=== PATIENT | female | born 1950 | race Caucasian/White ===

== ENCOUNTER → 2016-11-29 | Outpatient (CLI) | payer MEDICARE ==
--- NOTE | 2016-11-29 12:08 | US ---
EXAMINATION TYPE: US gallbladder DATE OF EXAM: 11/29/2016 COMPARISON: Prior CT abdomen 05/05/2014 CLINICAL HISTORY: R10.11 Right upper quadrant pain. Intermittent RUQ and epigastric pain x 1 month: g ets worse after eating, N/V EXAM MEASUREMENTS: Liver Length: 12.2 cm Gallbladder Wall: 0.1 cm CBD: 0.7 cm Right Kidney: 9.2 x 3.5 x 4.3 cm Pancreas: visualized portions wnl, tail partially obscured by overlying midline bowel gas, duct shey uring 0.2cm Liver: wnl Gallbladder: wnl Evidence for sonographic Riley's sign: yes CBD: slightly dilated at 0.7cm, stable Right Kidney: fullness of renal pelvis, no pathologic calcification or cortical mass. Mild cortical thinning present. There is no ascites. IMPRESSION: Biliary dilation appears to be chronic. There may be a component of medical renal disease . Probable extrarenal pelvis right kidney. Limited exam.
== END | disposition home or self-care (01) ==
LOC: RADUSWWP 08:15
PROVIDERS: ATTEND Family Medicine
DX: K83.8 Other specified diseases of biliary tract (principal)
CPT/HCPCS: 76705

== ENCOUNTER → 2016-12-14 | Outpatient (CLI) | payer MEDICARE ==
--- NOTE | 2016-12-15 07:14 | NM ---
EXAMINATION TYPE: NM hepatobiliary w EF DATE OF EXAM: 12/14/2016 COMPARISON: NONE HISTORY: Right upper quadrant pain. TECHNIQUE: After the intravenous administration of 5.2 mCi Tc 99m Mebrofenin hepatobiliary scintigrap hy is performed. Immediate images post injection. FINDINGS: There is satisfactory initial accumulation of tracer by the liver. The gallbladder is visualized wit hin 16 minutes. The small bowel was not imaged until after the administration of CCK. At one hour 8 ounces of oral ensure plus is given to mimic CCK and gallbladder ejection fraction is calculated at 39 %, in the normal range. Therefore there is no scintigraphic evidence of cystic or common bile joby t obstruction to suggest acute cholecystitis or gallbladder dyskinesia. IMPRESSION: AMBIGUOUS EXAMINATION WITH FAILURE TO VISUALIZE THE SMALL BOWEL UNTIL AFTER THE ADMINISTRATION OF CCK . I COULD NOT EXCLUDE A PARTIAL DISTAL COMMON DUCT OBSTRUCTION. ERCP VERSUS MRCP WOULD BE SUGGESTED.
== END | disposition home or self-care (01) ==
LOC: RADNMMAIN 14:42
PROVIDERS: ATTEND Family Medicine
DX: R10.11 Right upper quadrant pain (principal)
CPT/HCPCS: 78226; A9537

== ENCOUNTER → 2017-01-09 | Outpatient (CLI) | payer MEDICARE ==
--- NOTE | 2017-01-09 15:24 | BD ---
EXAMINATION TYPE: MG DEXA axial skeleton. DATE OF EXAM: 01/09/2017 COMPARISON: 2014 CLINICAL HISTORY: osteoporosis Height: 5'4 Weight: 104 FRAX RISK QUESTIONS: Alcohol (3 or more units per day): no Family History (Parent hip fracture): no Glucocorticoids (More than 3mos): no (Ex: prednisone, prednisolone, methylprednisolone, dexamethasone, and hydrocortisone). History of Fracture in Adulthood: no Secondary Osteoporosis: 1. Type 1 Diabetes: no 2. Hyperthyroidism: no 3. Menopause before 45: yes 4. Malnutrition: no 5. Chronic liver disease: no Rheumatoid Arthritis: yes Current Tobacco Use: no RISK FACTORS HISTORY OF: Family History of Osteoporosis: Active: Diet low in dairy products/other sources of calcium: Postmenopausal woman: MEDICATIONS: Osteoporosis Medications: Which medication: infusion How Lon year Additional Medications: aspirin, vitamin, aderol Additional History: breast cancer 1989 EXAM MEASUREMENTS: Bone mineral densitometry was performed using the [employer] System. Bone mineral density as measured about the Lumbar spine is: ----- L1-L4(G/cm2): 0.934 T Score Values are as follows: ----- L2: -2.4 ----- L3: -2.3 ----- L4: -1.6 ----- L1-L4: -2.0 Bone mineral density has: Increased 3.2% since study of: 06/18/2014 Bone mineral density about the R hip (g/cm2): 0.671 Bone mineral density about the L hip (g/cm2): 0.684 T Score values are as follows: -----R Neck: -2.6 -----L Neck: -2.5 -----R Total: -1.7 -----L Total: -2.2 Bone mineral density has: Increased 1.1% since study of: 06/18/2014 IMPRESSION: Osteoporosis (T Score less than -2.5) as noted by T Score values at the Rt hip There is increased fracture risk and therapy is usually indicated based on age. Re-Screen 1-2 years. Bone density has improved 3.2% within the lumbar spine and improved 1.1% within the bilateral hips fr om the comparison of 2014 NOTE: T-SCORE=SD OF THE YOUNG ADULT MEAN.
== END | disposition home or self-care (01) ==
LOC: RADBDWWP 07:58
PROVIDERS: ATTEND Family Medicine
DX: M81.0 Age-related osteoporosis without current pathological fracture (principal)
CPT/HCPCS: 77080

== ENCOUNTER → 2017-01-29 | Outpatient (CLI) | payer MEDICARE ==
[~2017-01-29] MED LIST: SODIUM CHLORIDE 0.9% 500 ML in EMPTY BAG 1 BAG IV PRN; ZOLEDRONIC ACID 5 MG in SODIUM CHLORIDE 0.9% 100 ML IV ONE
[2017-01-29 10:11] VITALS: BP 112/53; PULSE 71; RESP 16; TEMP 98.2
== END ==
LOC: PROCWHC3 09:30
PROVIDERS: ATTEND Family Medicine
DX: M81.0 Age-related osteoporosis without current pathological fracture (principal)
CPT/HCPCS: 96365; J3489

== ENCOUNTER 2017-09-03 08:54 | Inpatient (IN) | payer MEDICARE ==
[2017-09-03 09:49] LABS: Appearance,Urine Clear (Clear); Bilirubin,Urine Negative (Negative); Blood,Urine Negative (Negative); Color,Urine Yellow; Glucose,Urine (UA) Negative (Negative); Ketones,Urine Negative (Negative); Leukocyte Esterase,Urine Negative (Negative); Nitrite,Urine Negative (Negative); Protein,Urine Trace (Negative); Specific Gravity,Urine 1.015 (1.001-1.035); Urobilinogen,Urine <2.0 mg/dL (<2.0)
[2017-09-03 09:52] LABS: Basophils % (A) 1 %; Eosinophils # (A) 0.1 k/uL (0-0.7); Eosinophils % (A) 2 %; HCT 44.3 % (34.0-46.0); HGB 14.1 gm/dL (11.4-16.0); Lymphocytes # (A) 1.5 k/uL (1.0-4.8); Lymphocytes % (A) 23 %; MCH 28.9 pg (25.0-35.0); MCHC 31.8 g/dL (31.0-37.0); Mean Platelet Volume 8.5; Monocytes # (A) 0.5 k/uL (0-1.0); Monocytes % (A) 7 %; Neutrophils # (A) 4.2 k/uL (1.3-7.7); Neutrophils % (A) 66 %; Platelet Count 308 k/uL (150-450); RBC 4.87 m/uL (3.80-5.40); RDW 13.8 % (11.5-15.5); WBC 6.3 k/uL (3.8-10.6)
[2017-09-03 10:12] LABS: Calcium 9.6 mg/dL (8.4-10.2); Potassium 5.3 mmol/L (3.5-5.1); Total Bilirubin 0.5 mg/dL (0.2-1.3); Total Protein 6.8 g/dL (6.3-8.2)
[2017-09-03 10:23] LABS: Amphetamine Screen,Urine Not Detected (NotDetected); Barbiturate Screen,Urine Not Detected (NotDetected); Benzodiazepines Screen,Urine Not Detected (NotDetected); Cocaine Screen,Urine Not Detected (NotDetected); Methadone Screen, Urine Not Detected (NotDetected); Opiate Screen,Urine Not Detected (NotDetected); Oxycodone Screen, Urine Not Detected (NotDetected); Phencyclidine Screen,Urine Not Detected (NotDetected); Tricyclic Antidepressant,Urine Not Detected (NotDetected); Urn Cannabinoid Scrn Not Detected (NotDetected)
--- NOTE | 2017-09-03 11:18 | ED ---
Psych HPI - General Chief Complaint: Psychiatric Symptoms Stated Complaint: SUICIDAL Time Seen by Provider: 09/03/17 09:06 Source: patient, family, RN notes reviewed Mode of arrival: ambulatory Limitations: no limitations - History of Present Illness Initial Comments: This a 66-year-old female presents emergency Department with chief complaint of psychiatric issues. Patient states she's been having auditory and visual hallucinations. Patient states that she's been hearing voices tell her that things about her nieces and also states that she's been visualized MM dismembered. Patient states she has a history of psychosis. She does not take any current antipsychotic medications. Patient denies any fevers or chills denies any physical complaints denies any chest pain shortness breath or abdominal pain. She states she's been eating and drinking well. - Related Data Home Medications Medication Instructions Recorded Confirmed Aspirin 325 mg PO DAILY 05/12/14 09/03/17 Multivitamins, Thera [Multivitamin 1 tab PO DAILY 01/29/17 09/03/17 (formulary)] Hydroxychloroquine Sulfate 200 mg PO BID 09/03/17 09/03/17 [Plaquenil] NIFEdipine [NIFEdipine ER] 90 mg PO DAILY 09/03/17 09/03/17 Allergies Allergy/AdvReac Type Severity Reaction Status Date / Time No Known Allergies Allergy Verified 09/03/17 09:22 Review of Systems ROS Statement: Those systems with pertinent positive or pertinent negative responses have been documented in the HPI. ROS Other: All systems not noted in ROS Statement are negative. Past Medical History Past Medical History: Cancer, CVA/TIA, Osteoarthritis (OA), Rheumatoid Arthritis (RA), Seizure Disorder, Skin Disorder, Thyroid Disorder Additional Past Medical History / Comment(s): 02-11-15 ADMITTED TO [facility] WITH CELLULITIS RT EXTERNAL CHEEK/SUB MABIBULAR AREA,DENTAL ABCESS, ABCESS OF CHIN. PAST HX: cva 2006- slight slurred speach and had slight left sided weakness pt stated thats better, hiatal hernia, blurry vision has cataracts, hx breast cancer-BILAT- HAD SX AND CHEMO, history of rheumatoid arthritis not currently on treatment. STATES HAS SKIN DISEASE (moriarties). OSTEOPOROSIS, UTI-ECOLI ( 04-21-14) History of Any Multi-Drug Resistant Organisms: None Reported Past Surgical History: Adenoidectomy, Breast Surgery, Tonsillectomy Additional Past Surgical History / Comment(s): PROLAPSED RECTUM SX MAY 2014, AVELINO MASECTOMY, SKIN BX-NEG Past Anesthesia/Blood Transfusion Reactions: No Reported Reaction Additional Past Anesthesia/Blood Transfusion Reaction / Comment(s): CLAUSTERPHOBIA Past Psychological History: Anxiety, Depression Smoking Status: Former smoker Past Alcohol Use History: None Reported Past Drug Use History: None Reported - Past Family History Father Family Medical History: Cancer, Rheumatoid Arthritis (RA) Additional Family Medical History / Comment(s): SKIN CANCER, HEART PROBLEMS (PT NOT SURE WHAT TYPE) Mother Family Medical History: Dementia, Deep Vein Thrombosis (DVT), Osteoarthritis (OA ) General Exam Limitations: no limitations General appearance: alert, in no apparent distress Head exam: Present: atraumatic, normocephalic, normal inspection Eye exam: Present: normal appearance, PERRL, EOMI. Absent: scleral icterus, conjunctival injection, periorbital swelling ENT exam: Present: mucous membranes moist Neck exam: Present: normal inspection, full ROM. Absent: tenderness, meningismus, lymphadenopathy Respiratory exam: Present: normal lung sounds bilaterally. Absent: respiratory distress, wheezes, rales, rhonchi, stridor Cardiovascular Exam: Present: regular rate, normal rhythm, normal heart sounds. Absent: systolic murmur, diastolic murmur, rubs, gallop, clicks GI/Abdominal exam: Present: soft, normal bowel sounds. Absent: distended, tenderness, guarding, rebound, rigid Psychiatric exam: Present: anxious Skin exam: Present: warm, dry, intact, normal color. Absent: rash Course Vital Signs 09/03/17 08:58 Temperature 97.0 F L Pulse Rate 97 Respiratory 18 Rate Blood Pressure 150/60 O2 Sat by Pulse 99 Oximetry Medical Decision Making - Lab Data Result diagrams: 09/03/17 09:27 09/03/17 09:27 Lab Results 09/03/17 09/03/17 09/03/17 Range/Units 09:27 09:27 09:27 WBC 6.3 (3.8-10.6) k/uL RBC 4.87 (3.80-5.40) m/uL Hgb 14.1 (11.4-16.0) gm/dL Hct 44.3 (34.0-46.0) % MCV 91.0 (80.0-100.0) fL MCH 28.9 (25.0-35.0) pg MCHC 31.8 (31.0-37.0) g/dL RDW 13.8 (11.5-15.5) % Plt Count 308 (150-450) k/uL Neutrophils % 66 % Lymphocytes % 23 % Monocytes % 7 % Eosinophils % 2 % Basophils % 1 % Neutrophils # 4.2 (1.3-7.7) k/uL Lymphocytes # 1.5 (1.0-4.8) k/uL Monocytes # 0.5 (0-1.0) k/uL Eosinophils # 0.1 (0-0.7) k/uL Basophils # 0.0 (0-0.2) k/uL Sodium 146 H (137-145) mmol/L Potassium 5.3 H (3.5-5.1) mmol/L Chloride 108 H (98-107) mmol/L Carbon Dioxide 28 (22-30) mmol/L Anion Gap 10 mmol/L BUN 21 H (7-17) mg/dL Creatinine 1.15 H (0.52-1.04) mg/dL Est GFR (CKD-EPI)AfAm 57 (>60 ml/min/1.73 sqM) Est GFR (CKD-EPI)NonAf 49 (>60 ml/min/1.73 sqM) Glucose 87 (74-99) mg/dL Calcium 9.6 (8.4-10.2) mg/dL Total Bilirubin 0.5 (0.2-1.3) mg/dL AST 11 L (14-36) U/L ALT 23 (9-52) U/L Alkaline Phosphatase 56 (38-126) U/L Total Protein 6.8 (6.3-8.2) g/dL Albumin 4.0 (3.5-5.0) g/dL Urine Color Yellow Urine Appearance Clear (Clear) Urine pH 6.0 (5.0-8.0) Ur Specific [place] 1.015 (1.001-1.035) Urine Protein Trace H (Negative) Urine Glucose (UA) Negative (Negative) Urine Ketones Negative (Negative) Urine Blood Negative (Negative) Urine Nitrite Negative (Negative) Urine Bilirubin Negative (Negative) Urine Urobilinogen <2.0 (<2.0) mg/dL Ur Leukocyte Esterase Negative (Negative) Urine Opiates Screen Not Detected (NotDetected) Ur Oxycodone Screen Not Detected (NotDetected) Urine Methadone Screen Not Detected (NotDetected) Ur Propoxyphene Screen Not Detected (NotDetected) Ur Barbiturates Screen Not Detected (NotDetected) U Tricyclic Antidepress Not Detected (NotDetected) Ur Phencyclidine Scrn Not Detected (NotDetected) Ur Amphetamines Screen Not Detected (NotDetected) U Methamphetamines Scrn Not Detected (NotDetected) U Benzodiazepines Scrn Not Detected (NotDetected) Urine Cocaine Screen Not Detected (NotDetected) U Marijuana (THC) Screen Not Detected (NotDetected) Disposition Clinical Impression: Psychosis Disposition: ADMITTED IP TO THIS HOSP Condition: Stable
[2017-09-03] MEDS ORDERED: ACETAMINOPHEN TAB 325 MG TAB PO PRN (14:00)
[2017-09-03] MEDS ORDERED: MAG HYDROX/AL HYDROX/SIMETH 30 ML CUP PO PRN (14:00)
[2017-09-03] MEDS ORDERED: MAGNESIUM HYDROXIDE 2,400 MG/10 ML CUP PO PRN (14:00)
[2017-09-03] MEDS ORDERED: ZIPRASIDONE 20 MG VIAL IM PRN (14:00)
[2017-09-03] MEDS ORDERED: NIFEdipine XL 90 MG TAB.ER.24 PO SCH (14:15)
[2017-09-03] MEDS: MULTIVITAMINS, THERA 1 EACH TAB PO SCH (16:09)
[2017-09-03] MEDS: ASPIRIN 325 MG TAB PO SCH (16:09)
--- NOTE | 2017-09-03 17:11 | P.HPIM ---
History of Present Illness H&P Date: 09/03/17 Chief Complaint: psychosis and hallucination 66 years old female patient of Dr. Merino comes in with complaints of visual hallucinations and auditory hallucinations including visualizing her dog dismembered that started a week ago. Also has medical history significant for rheumatoid arthritis, osteoporosis, Raynaud's disease, history of seizure disorder, hypothyroidism, CVA/TIA, breast cancer status post bilateral mastectomy and chemotherapy, currently in remission. Patient denies any chest pain, shortness of breath, cough, nausea, vomiting, weight loss, loss of appetite, pain in any of the extremities, history of blood clots, change in bowel habits, loss of blood from any site. She does endorses decreased appetite and not drinking enough fluids. But denies any discoloration of the urine. Vitals done in the ER suggestive of blood pressure 150/60 by repeated blood pressure in the unit was 109/57. Patient is afebrile. Labs obtained in the ER suggested a sodium 146, potassium 5.3, chloride 108, creatinine 1.15 BUN 21 and trace proteins noted on the urine analysis. Toxicology was negative Review of Systems Constitutional: Denies chills, Denies fever, Denies lethargy, Denies malaise, endorses poor appetite, Denies weakness, Denies weight loss Eyes: denies decreased vision, denies diplopia, denies discharge, denies pain Ears: deny: decreased hearing Ears, nose, mouth and throat: Denies dental pain, Denies headache, Denies nasal discharge, Denies nose pain endorses dental pain and loss of teeth Cardiovascular: Denies chest pain, Denies decreased exercise tolerance, Denies edema, Denies high blood pressure, Denies irregular heart beat, Denies palpitations, Denies paroxysmal nocturnal dyspnea, Denies rapid heart beat, Denies shortness of breath Respiratory: Denies congestion, Denies cough, Denies cough with sputum, Denies dyspnea, Denies home oxygen, Denies wheezing Gastrointestinal: Denies abdominal pain, Denies change in bowel habits, Denies coffee ground emesis, Denies early satiety, Denies excessive gas, Denies heartburn, Denies hematemesis, Denies hematochezia, Denies loss of appetite, Denies nausea, Denies vomiting Genitourinary: Denies dysuria, Denies flank pain, Denies kidney stones, Denies menorrhagia, Denies urgency, Denies urinary frequency Musculoskeletal: Denies gait dysfunction, Denies limitation of motion, Denies morning stiffness, Denies muscle cramps Integumentary: Denies rash, Denies wounds, Denies brittle nails, Denies change in hair/nails, Denies darkening of skin Neurological: Denies balance difficulties, Denies change in speech, Denies double vision, Denies gait dysfunction, Denies loss of vision, Denies motor disturbance, Denies numbness, Denies paralysis, Denies paresthesias, Denies seizures Psychiatric: Denies anxiety, Denies depression endorses hallucinations Endocrine: Denies excessive sweating, Denies excessive thirst, Denies high blood sugars, Denies palpitations Hematologic/Lymphatic: Denies easy bruising, Denies lymphadenopathy Past Medical History Past Medical History: Cancer, CVA/TIA, Osteoarthritis (OA), Rheumatoid Arthritis (RA), Seizure Disorder, Skin Disorder, Thyroid Disorder Additional Past Medical History / Comment(s): Cancer bilateral breasts with mastectomies/chemotherapy, 2006 CVA with slight dysphasia and mild R sided arm/ leg weakness, morganii syndrome, cellulitis R cheek, dental and chin abscess, last seizure 2009, hiatal hernia, bilateral cataracts, osteoporosis, UTI, hypothyroid. History of Any Multi-Drug Resistant Organisms: None Reported Past Surgical History: Adenoidectomy, Breast Surgery, Tonsillectomy, Tubal Ligation Additional Past Surgical History / Comment(s): Surgery for prolapsed rectum, colonoscopy, bilateral breast mastectomy, benign skin bx. Past Anesthesia/Blood Transfusion Reactions: No Reported Reaction Additional Past Anesthesia/Blood Transfusion Reaction / Comment(s): CLAUSTERPHOBIA Smoking Status: Former smoker - Past Family History Father Family Medical History: Cancer, Rheumatoid Arthritis (RA) Additional Family Medical History / Comment(s): SKIN CANCER, HEART PROBLEMS (PT NOT SURE WHAT TYPE) Mother Family Medical History: Dementia, Deep Vein Thrombosis (DVT), Osteoarthritis (OA ) Medications and Allergies Home Medications Medication Instructions Recorded Confirmed Type Aspirin 325 mg PO DAILY 05/12/14 09/03/17 History Multivitamins, Thera [Multivitamin 1 tab PO DAILY 01/29/17 09/03/17 History (formulary)] Hydroxychloroquine Sulfate 200 mg PO BID 09/03/17 09/03/17 History [Plaquenil] NIFEdipine [NIFEdipine ER] 90 mg PO DAILY 09/03/17 09/03/17 History Allergies Allergy/AdvReac Type Severity Reaction Status Date / Time No Known Allergies Allergy Verified 09/03/17 14:43 Physical Exam Vitals: Vital Signs Temp Pulse Pulse Resp BP BP Pulse Ox 09/03/17 15:07 98 F 71 16 100 09/03/17 14:58 109/57 09/03/17 14:42 97.0 F L 97 18 150/60 99 09/03/17 08:58 97.0 F L 97 18 150/60 99 Intake and Output 09/03/17 09/03/17 09/03/17 06:59 14:59 22:59 Other: Weight 47.4 kg - Constitutional General appearance: cooperative, in acute distress, obese - EENT Eyes: anicteric sclerae, PERRLA, normal appearance dental decay present with loss of multiple deep ENT: hearing grossly normal - Neck Neck: no lymphadenopathy, normal ROM, no other, no rigidity, no stridor, no thyromegaly - Respiratory Respiratory: bilateral: CTA, negative: diminished, dullness, rales, rhonchi - Cardiovascular Rhythm: regular Heart sounds: normal: S1, S2 Abnormal Heart Sounds: no systolic murmur, no diastolic murmur, no rub, no S3 Gallop, no S4 Gallop, no click, no other - Gastrointestinal General gastrointestinal: normal bowel sounds, soft - Integumentary Integumentary: no rash - Neurologic Neurologic: CNII-XII intact - Musculoskeletal Musculoskeletal: gait normal, strength equal bilaterally - Psychiatric Psychiatric: A&O x's 3, appropriate affect and appears stressed and anxious Results CBC & Chem 7: 09/03/17 09:27 09/03/17 09:27 Labs: Abnormal Lab Results - Last 24 Hours (Table) 09/03/17 09/03/17 Range/Units 09:27 09:27 Sodium 146 H (137-145) mmol/L Potassium 5.3 H (3.5-5.1) mmol/L Chloride 108 H (98-107) mmol/L BUN 21 H (7-17) mg/dL Creatinine 1.15 H (0.52-1.04) mg/dL AST 11 L (14-36) U/L Urine Protein Trace H (Negative) Thrombosis Risk Factor Assmnt - Choose All That Apply Other Risk Factors: Yes Each Risk Factor Represents 2 Points: Age 61-74 years, Malignancy Each Risk Factor Represents 3 Points: Family history of DVT/PE Other congenital or acquired thrombophilia - If yes, enter type in comment: No Thrombosis Risk Factor Assessment Total Risk Factor Score: 7 Thrombosis Risk Factor Assessment Level: High Risk Assessment and Plan Plan: #1 acute psychosis - continue management per primary chain including Geodon as needed. #2 acute kidney injury likely secondary to dehydration and inadequate intake of fluids with skin losses of fluid or GI losses. Repeat CMP tomorrow. Encourage oral intake #3 hypernatremia with hyperkalemia unlikely to be related to diabetes insipidium. Urine osmolality ordered to asess ADH function #4 history of breast cancer status post surgery and chemotherapy, in remission #5 history of CVA/TIA continue aspirin #6 Rehnaud disease - hold nifedipine due to soft blood pressures #7 rheumatoid arthritis continue plaquenil 200 mg twice a day Thank you for the consult. I will be happy to assist in patient's mean while patient is here in the hospital
[2017-09-03] MEDS: HYDROXYCHLOROQUINE SULFATE 200 MG TAB PO SCH (20:57)
[2017-09-04] MEDS: ASPIRIN 325 MG TAB PO SCH (08:27)
[2017-09-04] MEDS: HYDROXYCHLOROQUINE SULFATE 200 MG TAB PO SCH ×2 (08:27→20:30)
[2017-09-04 09:55] LABS: Albumin 3.8 g/dL (3.5-5.0); Calcium 9.4 mg/dL (8.4-10.2); Potassium 5.3 mmol/L (3.5-5.1); Total Bilirubin 0.4 mg/dL (0.2-1.3); Total Protein 6.3 g/dL (6.3-8.2)
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
[2017-09-04] MEDS: CITALOPRAM HYDROBROMIDE 10 MG TAB PO SCH (11:32)
[2017-09-04 11:36] VITALS: BMI 17.9
[2017-09-04] MEDS: MULTIVITAMINS, THERA 1 EACH TAB PO SCH (12:44)
[2017-09-04] MEDS ORDERED: SODIUM POLYSTYRENE SULFONATE 15 GM/60 ML BOTTLE PO STA (14:55)
[2017-09-04 18:20] LABS: Glucose,Whole Blood 89 mg/dL (75-99)
[2017-09-04] MEDS ORDERED: QUEtiapine 25 MG TAB PO SCH (21:00)
[2017-09-05] MEDS: CITALOPRAM HYDROBROMIDE 10 MG TAB PO SCH (07:59)
[2017-09-05] MEDS: ASPIRIN 325 MG TAB PO SCH (07:59)
[2017-09-05] MEDS: HYDROXYCHLOROQUINE SULFATE 200 MG TAB PO SCH ×2 (07:59→20:33)
--- NOTE | 2017-09-05 08:48 | P.PN ---
Progress Note - Text Interval history: The patient is found hallway she follows me to an interview room. She reports her mood is depressed she reports feeling uncomfortable here on the mental health unit and is uncomfortable having a roommate. She states she feels at risk and in danger because she has a roommate. She reports making a greater effort to eat and drink. She states it's difficult attending groups because of her hearing impairment. We discussed her current psychotropic medications her questions were answered. She reports sleeping 4-5 hours last evening staff recorded 6 hours. Previously she was sleeping 2-3 hour she stated. She is looking forward to a visit from her this evening. Mental status exam: The patient is a thin female she is dressed in her own clothing hygiene is adequate. Eye contact is intermittent. She is soft -spoken she demonstrates some mild psychomotor slowing. She reports a continued depressed and hopeless mood. When asked about suicidal ideation she states she would rather not be alive. She reports no homicidal ideation intent or plan. She is endorsing continued auditory hallucinations that are distracting. She continues to have feelings of being in danger. Insight and judgment are impaired. She is oriented to person place and date. She maintains a blunted affect. Throughout the session she remains seated in a chair but does frequently move she moves her hand along the table several times. Plan: The patient will continue on the Celexa we will increase the Seroquel to 50 mg at bedtime we will titrate this as needed. We will monitor her for safety and encourage her participation in the milieu. She is asking to have the insure supplement discontinued and she feels that unnecessary. Vitals reviewed. Labs reviewed. There was improvement of her hypernatremia and creatinine.
[2017-09-05] MEDS: MULTIVITAMINS, THERA 1 EACH TAB PO SCH (12:43)
[2017-09-05] MEDS ORDERED: QUEtiapine 50 MG TAB PO SCH (21:00)
[2017-09-06] MEDS: ASPIRIN 325 MG TAB PO SCH (08:29)
[2017-09-06] MEDS: CITALOPRAM HYDROBROMIDE 10 MG TAB PO SCH (08:30)
[2017-09-06] MEDS: HYDROXYCHLOROQUINE SULFATE 200 MG TAB PO SCH ×2 (08:30→20:30)
[2017-09-06] MEDS ORDERED: LOPERAMIDE 2 MG CAP PO PRN (09:15)
--- NOTE | 2017-09-06 09:22 | P.PN ---
Progress Note - Text Interval history: The patient is found in group she follows me to an interview room. She reports that she wants to go home. Initially she tries to minimize symptoms especially symptoms of psychosis but later in the session she states that she will be honest and state that she is still experiencing auditory hallucination as well as some paranoid thought. She describes having a constant whaling knowing his in her head. She also states that she feels "something is going on up here" as she cannot remember things." She states she is doing the best she can do eat. Further lab work is ordered for today. She reports sleeping throughout the night staff recorded 5 hours. Mental status exam: The patient is a thin female she seated calmly she is soft-spoken eye contact is intermittent. She is dressed in her own clothing. She reports a depressed mood with some hopeless thinking. She endorses no acute suicidal or homicidal ideation. She endorses an auditory hallucination that she describes as constant. She endorses some paranoid and persecutory thoughts. She states she feels like an alien here as she cannot relate to other people. Insight and judgment impaired. She is oriented to person place and date. She demonstrates no verbal or physical aggressiveness or any abnormal involuntary movements. She maintains a blunted affect. Plan: We will discontinue the Seroquel as it seems able take much longer for her to demonstrate efficacy for her psychosis. We will initiate respite all 0.5 mg at bedtime continue Celexa 10 mg daily. She is reporting having some diarrhea which may be related to the Celexa. We will not advance the dose at this time. Imodium prescribed as needed. Await results from blood work to be drawn today. She requires continued psychiatric hospitalization due to her acute symptoms of depression and psychosis.
[2017-09-06 11:09] LABS: Albumin 3.9 g/dL (3.5-5.0); Calcium 9.6 mg/dL (8.4-10.2); Potassium 4.7 mmol/L (3.5-5.1); Total Bilirubin 0.4 mg/dL (0.2-1.3); Total Protein 6.7 g/dL (6.3-8.2)
[2017-09-06] MEDS: MULTIVITAMINS, THERA 1 EACH TAB PO SCH (12:56)
[2017-09-06] MEDS ORDERED: risperiDONE 0.5 MG TAB PO SCH (21:00)
[2017-09-07] MEDS: HYDROXYCHLOROQUINE SULFATE 200 MG TAB PO SCH ×2 (08:19→20:46)
[2017-09-07] MEDS: CITALOPRAM HYDROBROMIDE 10 MG TAB PO SCH (08:19)
[2017-09-07] MEDS: ASPIRIN 325 MG TAB PO SCH (08:19)
--- NOTE | 2017-09-07 11:50 | P.PN ---
Progress Note - Text Progress Note Date: 09/07/17 Interval History: Patient is a 66-year-old female is being seen in coverage for Dr. Maddox. Patient reports that she did not sleep well last night and continues to hear a wailing noise. Patient states that the noise causes her to feel depressed. She states that she is having difficulty focusing, she states it is difficult to read the book that she had with her. Patient denied any paranoid ideation. Patient states she is trying to eat and drink fluids and yesterday she ate 75% of her breakfast, 25% of her lunch and 50% of dinner. Patient states this is more than she typically eats at home. Patient reported no side effects from the medication. Mental Status: Appearance/Attitude: Patient is appropriately dressed, makes good eye contact and is cooperative. Behavior: Patient did not display any psychomotor agitation nor retardation Speech/Language: Patient's speech is spontaneous, her speech is slightly slowed within normal volume and she is coherent Thought Process: Patient is goal-directed, no evidence of circumstantial or tangential thought and no loose association or flight of ideas Thought Content: Patient states that she continues to hear a wailing noise, no visual hallucinations and no delusions or paranoid ideation were elicited. Patient reports that she is trying to eat and drink fluids. Patient states that she did not sleep well last evening. Patient states that she is not feeling suspicious or paranoid. Suicidal/Homicidal Ideation: Patient denied any current suicidal or homicidal ideation. Sensorium/Cognition: Patient is alert and oriented to person, place, and time and her recent and remote memory are grossly intact. Mood/Affect: patient's mood remains slightly depressed, her affect is blunted Insight/Judgment: patient's insight and judgment are fair Assessment: patient reports poor sleep last night with the change from Seroquel to Risperdal. She states she is trying to eat and drink more. She reports that she continues to hear a wailing noise and it causes her to have a headache , feel depressed and make it difficult for her to focus. Patient reports that she is not feeling paranoid or suspicious. She reported no current side effects from her medications. Patient is attending groups and activities. Plan: patient will continue on Celexa 10 mg in the morning and will increase Risperdal to 1 mg at bedtime to target her psychotic symptoms. We'll also add melatonin 3 mg at bedtime to target her poor sleep. Patient continues to require hospitalization to further stabilize her mood and decrease her psychotic symptoms.
[2017-09-07] MEDS: MULTIVITAMINS, THERA 1 EACH TAB PO SCH (12:46)
[2017-09-07] MEDS: risperiDONE 1 MG TAB PO SCH (20:46)
[2017-09-07] MEDS: MELATONIN 3 MG TABLET PO SCH (20:46)
[2017-09-08 07:14] VITALS: RESP 16
[2017-09-08] MEDS: ASPIRIN 325 MG TAB PO SCH (08:36)
[2017-09-08] MEDS: HYDROXYCHLOROQUINE SULFATE 200 MG TAB PO SCH ×2 (08:36→20:10)
[2017-09-08] MEDS: CITALOPRAM HYDROBROMIDE 10 MG TAB PO SCH (08:37)
[2017-09-08] MEDS: MULTIVITAMINS, THERA 1 EACH TAB PO SCH (12:56)
[2017-09-08] MEDS: MELATONIN 3 MG TABLET PO SCH (20:10)
[2017-09-08] MEDS: risperiDONE 1 MG TAB PO SCH (20:11)
--- NOTE | 2017-09-08 21:55 | P.PN ---
Progress Note - Text Progress Note Date: 09/08/17 Patient was seen today. She says she cannot hear well. She reports doing better today. She claims her depression is getting better. She claims she has not heard any voices today. She reports good sleep and appetite. She reports attending and participating in all unit activites and groups. She denies symptoms of ligia. Mental status exam She is 66 year old woman. She is dressed in hospital attire. She appears in fair grooming and hygiene. She is pleasant and cooperative. She maintains good eye contact. Her speech is soft and thought process is goal directed. Her mood is reported as better and affect constricted. She denies auditory or visual hallucinations. She denies paranoia and she does not appear delusional. She denies current suicidal or homicidal ideations. She is alert and oriented to time, place and person. She has fair insight and judgment. Assessment Her symptoms are improving Plan patient will continue on Celexa 10 mg in the morning Continue Risperdal 1 mg at bedtime Continue melatonin 3 mg at bedtime Monitor for symptoms
[2017-09-09] MEDS: HYDROXYCHLOROQUINE SULFATE 200 MG TAB PO SCH ×2 (08:21→20:38)
[2017-09-09] MEDS: ASPIRIN 325 MG TAB PO SCH (08:21)
[2017-09-09] MEDS: CITALOPRAM HYDROBROMIDE 10 MG TAB PO SCH (08:22)
[2017-09-09] MEDS: MULTIVITAMINS, THERA 1 EACH TAB PO SCH (13:35)
--- NOTE | 2017-09-09 20:27 | P.PN ---
Progress Note - Text Progress Note Date: 09/09/17 Patient was seen today. She reports doing very well. She states her visited her today. She reports she will have a meeting tomorrow morning and after that she will go home. She is happy about it. She denies current symptoms of depression, psychosis and ligia. She is compliant with her medications and attends all group therapies. Mental status exam She is 66 year old woman. She is dressed casually . She appears in fair grooming and hygiene. She is pleasant and cooperative. She maintains good eye contact. Her speech is soft and thought process is goal directed. Her mood is reported as good and affect constricted. She denies auditory or visual hallucinations. She denies paranoia and she does not appear delusional. She denies current suicidal or homicidal ideations. She is alert and oriented to time, place and person. She has fair insight and judgment. Assessment Her symptoms have improved significantly Plan patient will continue on Celexa 10 mg in the morning Continue Risperdal 1 mg at bedtime Continue melatonin 3 mg at bedtime Monitor for symptoms
[2017-09-09] MEDS: MELATONIN 3 MG TABLET PO SCH (20:38)
[2017-09-09] MEDS: risperiDONE 1 MG TAB PO SCH (20:38)
[2017-09-10 06:47] VITALS: BP 92/51; PULSE 83; TEMP 97.6
[2017-09-10] MEDS: ASPIRIN 325 MG TAB PO SCH (08:25)
[2017-09-10] MEDS: CITALOPRAM HYDROBROMIDE 10 MG TAB PO SCH (08:25)
[2017-09-10] MEDS: HYDROXYCHLOROQUINE SULFATE 200 MG TAB PO SCH (08:25)
--- NOTE | 2017-09-10 09:18 | P.DS ---
Providers Date of admission: 09/03/17 13:57 Expected date of discharge: 09/10/17 Attending physician: Lara Santiago MD Consults: 09/03/17 14:00 Consult Physician Routine Consulting Provider: Raymond Ovalle Consult Reason/Comments: H and P and Medical management Do you want consulting provider notified?: Yes Primary care physician: Raymond Ovalle [facility] Course: Discharge Diagnosis: Recurrent major depression, moderate with psychotic symptoms Reason for Admission: Patient is a 66-year-old female who was admitted for suicidal ideation, she also was reporting auditory and visual hallucinations. She initially had reported that the auditory hallucinations were stating derogatory comments about her granddaughter. She also had delusional ideation that family members were engaging in incestuous relationships. She was feeling hopeless and helpless. She reported that she did not want to live if this would continue. Her appetite has been decreased and she had not been eating or drinking well nor sleeping well. Patient reported a decrease in her energy level as well. Patient had one prior psychiatric admission several years ago and had been followed in the outpatient setting but had not been seen for the last 6 months due to financial reasons. Her medications in the past and been Seroquel, Remeron and Celexa. Hospital Course: Patient was admitted on a voluntary basis, routine observation and group and activity therapy were ordered. Patient also had routine laboratory studies and a medical consultation was requested. Patient's potassium level was found to be high, this was treated and her labs were repeated within normal potassium level. Patient was initially restarted on Celexa 10 mg and Seroquel 25 mg at bedtime. Patient's psychotic symptoms did not respond to the Seroquel and so it was changed to Risperdal 0.5 mg at bedtime. Patient reported a decrease in her delusional ideation, but the voices persisted and the dose of Risperdal was increased to 1 mg at bedtime. Patient was continued on Celexa 10 mg in the morning. Patient reported that her appetite had improved, she was sleeping 5-6 hours a night and the voices had decreased since her admission. She no longer reported hearing people talking nor a wailing noise but stated that it was a humming noise that was not causing her distress. Patient stated that she had been attending groups and activities and stated that she felt well enough to return home. Patient was continued on her aspirin, Plaquenil and multivitamins. Patient's nifedipine extended release was discontinued due to her blood pressures. Allergies No Known Allergies Allergy (Verified 09/03/17 14:43) Laboratory Last Values WBC 6.3 k/uL (3.8-10.6) 09/03/17 09: RBC 4.87 m/uL (3.80-5.40) 09/03/17: Hgb 14.1 gm/dL (11.4-16.0) 09/03/17: Hct 44.3 % (34.0-46.0) 09/03/17: MCV 91.0 fL (80.0-100.0) 09/03/17: MCH 28.9 pg (25.0-35.0) 09/03/17: MCHC 31.8 g/dL (31.0-37.0) 09/03/17: RDW 13.8 % (11.5-15.5) 09/03/17: Plt Count 308 k/uL (150-450) 09/03/17 09: Neutrophils % 66 % 09/03/17 09: Lymphocytes % 23 % 09/03/17: Monocytes % 7 % 09/03/17: Eosinophils % 2 % 09/03/17 09: Basophils % 1 % 09/03/17 09:27 Neutrophils # 4.2 k/uL (1.3-7.7) 09/03/17 09: Lymphocytes # 1.5 k/uL (1.0-4.8) 09/03/17:27 Monocytes # 0.5 k/uL (0-1.0) 09/03/17 09: Eosinophils # 0.1 k/uL (0-0.7) 09/03/17: Basophils # 0.0 k/uL (0-0.2) 09/03/17 09:27 Sodium 143 mmol/L (137-145) 09/06/17 09:50 Potassium 4.7 mmol/L (3.5-5.1) 09/06/17 09:50 Chloride 104 mmol/L (98-107) 09/06/17 09:50 Carbon Dioxide 26 mmol/L (22-30) 09/06/17 09:50 Anion Gap 13 mmol/L 09/06/17 09:50 BUN 24 mg/dL (7-17) H 09/06/17 09:50 Creatinine 1.10 mg/dL (0.52-1.04) H 09/06/17 09:50 Est GFR (CKD-EPI)AfAm 60 (>60 ml/min/1.73 sqM) 09/06/17 09:50 Est GFR (CKD-EPI)NonAf 52 (>60 ml/min/1.73 sqM) 09/06/17 09:50 Glucose 76 mg/dL (74-99) 09/06/17 09:50 POC Glucose (mg/dL) 89 mg/dL (75-99) 09/04/17 18:08 POC Glu Corset Fitter Sveta Starks 09/04/17 18:08 Osmolality 303 mosm/kg (280-301) H 09/03/17 09:47 Calcium 9.6 mg/dL (8.4-10.2) 09/06/17 09:50 Total Bilirubin 0.4 mg/dL (0.2-1.3) 09/06/17 09:50 AST 18 U/L (14-36) 09/06/17 09:50 ALT 28 U/L (9-52) 09/06/17 09:50 Alkaline Phosphatase 51 U/L (38-126) 09/06/17 09:50 Total Protein 6.7 g/dL (6.3-8.2) 09/06/17 09:50 Albumin 3.9 g/dL (3.5-5.0) 09/06/17 09:50 TSH 1.270 mIU/L (0.465-4.680) 09/04/17 09:18 Urine Color Yellow 09/03/17 09:27 Urine Appearance Clear (Clear) 09/03/17 09:27 Urine pH 6.0 (5.0-8.0) 09/03/17 09:27 Ur Specific [place] 1.015 (1.001-1.035) 09/03/17 09:27 Urine Protein Trace (Negative) H 09/03/17 09:27 Urine Glucose (UA) Negative (Negative) 09/03/17 09:27 Urine Ketones Negative (Negative) 09/03/17 09:27 Urine Blood Negative (Negative) 09/03/17 09:27 Urine Nitrite Negative (Negative) 09/03/17: Urine Bilirubin Negative (Negative) 09/03/17 09: Urine Urobilinogen <2.0 mg/dL (<2.0) 09/03/17 09:27 Ur Leukocyte Esterase Negative (Negative) 09/03/17 09: Urine Osmolality 272 mosm/kg (50-1400) 09/04/17 04:15 Urine Opiates Screen Not Detected (NotDetected) 09/03/17 09:27 Ur Oxycodone Screen Not Detected (NotDetected) 09/03/17 09:27 Urine Methadone Screen Not Detected (NotDetected) 09/03/17 09:27 Ur Propoxyphene Screen Not Detected (NotDetected) 09/03/17 09:27 Ur Barbiturates Screen Not Detected (NotDetected) 09/03/17 09:27 U Tricyclic Antidepress Not Detected (NotDetected) 09/03/17 09:27 Ur Phencyclidine Scrn Not Detected (NotDetected) 09/03/17 09:27 Ur Amphetamines Screen Not Detected (NotDetected) 09/03/17 09:27 U Methamphetamines Scrn Not Detected (NotDetected) 09/03/17 09:27 U Benzodiazepines Scrn Not Detected (NotDetected) 09/03/17 09:27 Urine Cocaine Screen Not Detected (NotDetected) 09/03/17 09:27 U Marijuana (THC) Screen Not Detected (NotDetected) 09/03/17 09:27 Discharge Mental Status: Appearance/Attitude: Patient is a thin appropriately dressed female who made good eye contact and was cooperative. Behavior: Patient did not display any psychomotor agitation or retardation. Speech/Language: Patient's speech was spontaneous and of normal volume and rhythm and she was coherent. Thought Process: Patient is goal-directed, there is no evidence of loose association or flight of ideas. Thought Content: Patient denied visual hallucinations and stated that she still hears a humming in her head which is not distressful to her and is not occurring constantly, no delusional or paranoid ideation was elicited. Patient reports that she is sleeping about 6 hours a night, she has been eating about 75 % of her meals and states that she feels ready to return home. Suicidal/Homicidal Ideation: Patient denied any current suicidal or homicidal ideation. Sensorium/Cognition: Patient is alert and oriented to person, place, and time and her recent and remote memory were grossly intact. Mood/Affect: Patient's mood euthymic, her affect is pang. Insight/Judgment: Patient's insight and judgment are fair. Risk Assessment: Patient's risk for harm is low, patient will be compliant with medication Discharge Plan: Patient will return home to live with her , she will continue on Celexa 10 mg in the morning and Risperdal 1 mg at bedtime. Patient will continue on her Plaquenil, aspirin and multivitamins. Patient states that she was unsure of the melatonin had been beneficial or not and she will see how she sleeps when she returns home. Patient was encouraged to be compliant with follow-up treatment with Dr. Catherine and with her medication. Patient Condition at Discharge: Stable Plan - Discharge Summary Discharge Rx Participant: No New Discharge Prescriptions: New Citalopram Hydrobromide [CeleXA] 10 mg PO DAILY #14 tab risperiDONE [RisperDAL] 1 mg PO HS #14 tab Continue Aspirin 325 mg PO DAILY Multivitamins, Thera [Multivitamin (formulary)] 1 tab PO DAILY Hydroxychloroquine Sulfate [Plaquenil] 200 mg PO BID Discontinued NIFEdipine [NIFEdipine ER] 90 mg PO DAILY Discharge Medication List Aspirin 325 mg PO DAILY 05/12/14 [History] Multivitamins, Thera [Multivitamin (formulary)] 1 tab PO DAILY 01/29/17 [History ] Hydroxychloroquine Sulfate [Plaquenil] 200 mg PO BID 09/03/17 [History] Citalopram Hydrobromide [CeleXA] 10 mg PO DAILY #14 tab 09/10/17 [Rx] risperiDONE [RisperDAL] 1 mg PO HS #14 tab 09/10/17 [Rx] Follow up Appointment(s)/Referral(s): [facility] [Outside] - 09/18/17 11:00 am (09/18 @ 11:00 with Hans 09/21 @ 10:20 Dr. Childers ) Raymond Ovalle DO [Primary Care Provider] - 1-2 days Patient Instructions/Handouts: Depression (DC), Brief Psychotic Disorder (DC) Activity/Diet/Wound Care/Special Instructions: Activity and diet as tolerated. Avoid the use of street drugs and alcohol. Remove all firearms from home. Take all medications as prescribed. When you are in need of refills of your medication please contact your medical provider and/ or outpatient psychiatrist to have this done. Please go to scheduled outpatient appointment for aftercare. If symptoms return or become worse you can call the Crisis Line at and/or go to the nearest emergency room for an evaluation. Discharge Disposition: HOME SELF-CARE
== END 2017-09-10 10:34 | disposition home or self-care (01) | DRG 885 ==
LOC: EC 08:54 → 3MHU 13:57
PROVIDERS: ADMIT Psychiatry & Neurology Psychiatry; ATTEND Psychiatry & Neurology Psychiatry
DX: F33.1 Major depressive disorder, recurrent, moderate (principal); N17.9 Acute kidney failure, unspecified; E87.0 Hyperosmolality and hypernatremia; E87.5 Hyperkalemia; I69.351 Hemiplegia and hemiparesis following cerebral infarction affecting right dominant side; R45.851 Suicidal ideations; E03.9 Hypothyroidism, unspecified; E86.0 Dehydration; G40.909 Epilepsy, unspecified, not intractable, without status epilepticus; H91.90 Unspecified hearing loss, unspecified ear; I73.00 Raynaud's syndrome without gangrene; M06.9 Rheumatoid arthritis, unspecified; M81.0 Age-related osteoporosis without current pathological fracture; Z79.82 Long term (current) use of aspirin; Z79.899 Other long term (current) drug therapy; Z80.8 Family history of malignant neoplasm of other organs or systems; Z85.3 Personal history of malignant neoplasm of breast; Z87.891 Personal history of nicotine dependence; Z90.13 Acquired absence of bilateral breasts and nipples; Z92.21 Personal history of antineoplastic chemotherapy; I69.321 Dysphasia following cerebral infarction; F40.240 Claustrophobia; Z91.410 Personal history of adult physical and sexual abuse
CPT/HCPCS: 36415; 80053; 80306; 81003; 82075; 83930; 83935; 84443; 85025; 93005; 99285

== ENCOUNTER 2018-02-20 06:59 | Emergency (ER) | payer MEDICARE ==
[2018-02-20] MEDS ORDERED: SODIUM CHLORIDE 0.9% 1,000 ML IV STA (07:36)
[2018-02-20] MEDS ORDERED: MAG HYDROX/AL HYDROX/SIMETH 30 ML, HYOSCYAMINE ELIXIR 10 ML, CIMETIDINE HCL 300 MG, LID... PO STA ×4 (07:36)
--- NOTE | 2018-02-20 07:42 | ED ---
General Adult HPI - General Chief complaint: ENT Stated complaint: Acid taste in mouth, Poss Dehydrated Source: patient Mode of arrival: ambulatory Limitations: no limitations - History of Present Illness Initial comments: Dictation was produced using qualifyor dictation software. please excuse any grammatical, word or spelling errors. Chief Complaint: 67-year-old female with past medical history of rheumatoid arthritis, hiatal hernia presents with a sour taste in her mouth History of Present Illness: Patient is 55-year-old female with past medical history of hiatal hernia, hypertension, rheumatoid arthritis presents with sour acid taste in her mouth. Patient states that she has a hiatal hernia which was diagnosed approximately 1 year ago. Patient states since over the past week she 's been having problems with a sour taste in her mouth. She states that she gets symptoms when she lies down at night. She states that her symptoms are bad enough that she has a hard time sleeping at night. Patient does have history of psychiatric disease. She does take cervical and regular basis. Patient has a history of rheumatoid arthritis. Patient denies any abdominal complaints. She attempted to take Zantac and Maalox without any resolve. Patient does feel dehydrated. The ROS documented in this emergency department record has been reviewed and confirmed by me. Those systems with pertinent positive or negative responses have been documented in the HPI. All other systems are other negative and/or noncontributory. - Related Data Home Medications Medication Instructions Recorded Confirmed Calcium Carbonate [Tums] 500 mg PO QID 02/20/18 02/20/18 QUEtiapine [SEROquel] 25 mg PO HS 02/20/18 02/20/18 Ranitidine HCl [Zantac] 150 mg PO BID 02/20/18 02/20/18 Previous Rx's Medication Instructions Recorded Omeprazole [PriLOSEC] 40 mg PO DAILY #30 capsule. 02/20/18 Allergies Allergy/AdvReac Type Severity Reaction Status Date / Time No Known Allergies Allergy Verified 02/20/18 07:27 Review of Systems ROS Statement: Those systems with pertinent positive or pertinent negative responses have been documented in the HPI. ROS Other: All systems not noted in ROS Statement are negative. 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 History of Any Multi-Drug Resistant Organisms: None Reported Past Surgical History: Adenoidectomy, Breast Surgery, Tonsillectomy, Tubal Ligation Additional Past Surgical History / Comment(s): Surgery for prolapsed rectum, colonoscopy, bilateral breast mastectomy, benign skin bx. Past Anesthesia/Blood Transfusion Reactions: No Reported Reaction Additional Past Anesthesia/Blood Transfusion Reaction / Comment(s): CLAUSTERPHOBIA Past Psychological History: Anxiety, Depression Smoking Status: Former smoker Past Alcohol Use History: None Reported Past Drug Use History: None Reported - Past Family History Father Family Medical History: Cancer, Rheumatoid Arthritis (RA) Additional Family Medical History / Comment(s): SKIN CANCER, HEART PROBLEMS (PT NOT SURE WHAT TYPE) Mother Family Medical History: Dementia, Deep Vein Thrombosis (DVT), Osteoarthritis (OA ) General Exam - General Exam Comments Initial Comments: PHYSICAL EXAM: General Impression: Alert and oriented x3, not in acute distress HEENT: Normocephalic atraumatic, extra-ocular movements intact, pupils equal and reactive to light bilaterally, dry mucous membranes.. Cardiovascular: Heart regular rate and rhythm, S1&S2 audible, no murmurs, rubs or gallops Chest: Lungs clear to auscultation bilaterally, no rhonchi, no wheeze, no rales Abdomen: Bowel sounds present, abdomen soft, non-tender, non-distended, no organomegaly Musculoskeletal: Pulses present and equal in all extremities, no peripheral edema Motor: Power 5/5 bilaterally, no focal deficits noted Neurological: CN II-XII grossly intact, no focal motor or sensory deficits noted Skin: Intact with no visualized rashes Psych: Normal affect and mood Limitations: no limitations Course Vital Signs 02/20/18 02/20/18 07:10 09:07 Temperature 97.7 F Pulse Rate 77 65 Respiratory 18 16 Rate Blood Pressure 135/83 122/76 O2 Sat by Pulse 95 96 Oximetry Medical Decision Making - Medical Decision Making ED course: 67-year-old female with past medical history of hiatal hernia presents with symptoms suspicious for gastro-suffer reflux disease vital signs upon arrival are within acceptable limits. EKG did show bradycardia with a rate of 46. Patient was observed in emergency department. Her heart rate has been maintained in the 60s. Patient is otherwise hemodynamically stable and not showing any signs of symptomatic bradycardia. Medications were reviewed. Patient does not appear to be in acute distress.Laboratory evaluation obtained. CBC unremarkable. Metabolic panel is unremarkable. Abdominal labs are unremarkable. Acute abdominal series shows no acute processes. There is moderate stool burden however no evidence for fever or obstruction. Patient given GI cocktail. She is reevaluated in the emergency department for couple hours. There is improvement of symptoms. Patient to be discharged with a prescription for omeprazole. She is told to follow-up with her GI doctor for outpatient management of symptoms. Patient told to avoid large meals prior to bedtime. She is told to eat small meals. She is told to sleep any elevated position. Patient is understandable and agreeable to disposition. EKG was obtained.EKG interpretation: Ventricular rate 46, sinus bradycardia, DE interval 142, care surgeon 134, QTc 383. No DE prolongation, no QTC prolongation , no ST or T-wave changes noted. Compared to EKG performed August 2017 showing no acute changes. Overall, this EKG is unremarkable - Lab Data Result diagrams: 02/20/18 08:47 02/20/18 08:47 Lab Results 02/20/18 02/20/18 Range/Units 08:47 08:47 WBC 6.8 (3.8-10.6) k/uL RBC 5.24 (3.80-5.40) m/uL Hgb 15.5 (11.4-16.0) gm/dL Hct 50.1 H (34.0-46.0) % MCV 95.6 (80.0-100.0) fL MCH 29.6 (25.0-35.0) pg MCHC 30.9 L (31.0-37.0) g/dL RDW 13.1 (11.5-15.5) % Plt Count 331 (150-450) k/uL Neutrophils % 73 % Lymphocytes % 16 % Monocytes % 6 % Eosinophils % 3 % Basophils % 1 % Neutrophils # 4.9 (1.3-7.7) k/uL Lymphocytes # 1.1 (1.0-4.8) k/uL Monocytes # 0.4 (0-1.0) k/uL Eosinophils # 0.2 (0-0.7) k/uL Basophils # 0.1 (0-0.2) k/uL Sodium 142 (137-145) mmol/L Potassium 4.9 (3.5-5.1) mmol/L Chloride 105 (98-107) mmol/L Carbon Dioxide 29 (22-30) mmol/L Anion Gap 8 mmol/L BUN 26 H (7-17) mg/dL Creatinine 1.07 H (0.52-1.04) mg/dL Est GFR (CKD-EPI)AfAm 62 (>60 ml/min/1.73 sqM) Est GFR (CKD-EPI)NonAf 53 (>60 ml/min/1.73 sqM) Glucose 80 (74-99) mg/dL Calcium 9.7 (8.4-10.2) mg/dL Magnesium 2.3 (1.6-2.3) mg/dL Total Bilirubin 0.7 (0.2-1.3) mg/dL AST 16 (14-36) U/L ALT 29 (9-52) U/L Alkaline Phosphatase 58 (38-126) U/L Total Protein 7.4 (6.3-8.2) g/dL Albumin 4.3 (3.5-5.0) g/dL Lipase 72 (23-300) U/L Disposition Clinical Impression: GERD (gastroesophageal reflux disease) Disposition: HOME SELF-CARE Instructions: Gastroesophageal Reflux Disease (DC) Additional Instructions: follow up with GI doctor Prescriptions: Omeprazole [PriLOSEC] 40 mg PO DAILY #30 capsule.dr Is patient prescribed a controlled substance at d/c from ED?: No Referrals: Raymond Ovalle DO [Primary Care Provider] - 1-2 days Time of Disposition: 09:42
--- NOTE | 2018-02-20 08:09 | XR ---
EXAMINATION TYPE: XR abdomen acute w cxr DATE OF EXAM: 02/20/2018 COMPARISON: Chest 03/27/2017 HISTORY: 67 year-old female history of cancer, pain TECHNIQUE: Supine, upright, and left side down lateral decubitus views of the abdomen are obtained. FINDINGS: Frontal view of the chest shows hyperinflation with interval left-sided rib fractures not clearly see n previously. These seem to show some callus suggesting either subacute or chronic fractures. Focal o pacity at the right apex is unchanged. There is no evidence for pneumoperitoneum. No dilated small bowel loops or differential air-fluid levels. Air and stool seen extending distally to the rectum. There is moderate stool burden. Bowel content largely obscures the renal shadows. No definite suspicious calcifications. IMPRESSION: 1. COPD with stable right apical opacity as compared to 03/27/2017. Nonemergent CT can be considered if this area has not been previously evaluated. It shows some interval increase from 2014. Probably r epresents pleural parenchymal scarring. 2. No evidence for free air or bowel obstruction. 3. Moderate stool burden.
[2018-02-20 09:01] LABS: Basophils # (A) 0.1 k/uL (0-0.2); Basophils % (A) 1 %; Eosinophils # (A) 0.2 k/uL (0-0.7); Eosinophils % (A) 3 %; HCT 50.1 % (34.0-46.0); HGB 15.5 gm/dL (11.4-16.0); Lymphocytes # (A) 1.1 k/uL (1.0-4.8); Lymphocytes % (A) 16 %; MCH 29.6 pg (25.0-35.0); MCHC 30.9 g/dL (31.0-37.0); MCV 95.6 fL (80.0-100.0); Mean Platelet Volume 7.4; Monocytes # (A) 0.4 k/uL (0-1.0); Monocytes % (A) 6 %; Neutrophils # (A) 4.9 k/uL (1.3-7.7); Neutrophils % (A) 73 %; Platelet Count 331 k/uL (150-450); RBC 5.24 m/uL (3.80-5.40); RDW 13.1 % (11.5-15.5); WBC 6.8 k/uL (3.8-10.6)
[2018-02-20 09:08] VITALS: RESP 16
[2018-02-20 09:12] LABS: Albumin 4.3 g/dL (3.5-5.0); Calcium 9.7 mg/dL (8.4-10.2); Magnesium 2.3 mg/dL (1.6-2.3); Potassium 4.9 mmol/L (3.5-5.1); Total Bilirubin 0.7 mg/dL (0.2-1.3); Total Protein 7.4 g/dL (6.3-8.2)
[2018-02-20 10:18] VITALS: BP 104/65; PULSE 78; TEMP 98.8
== END 2018-02-20 10:15 | disposition home or self-care (01) ==
LOC: EC 06:59
DX: K21.9 Gastro-esophageal reflux disease without esophagitis (principal); F32.9 Major depressive disorder, single episode, unspecified; F41.9 Anxiety disorder, unspecified; Z87.891 Personal history of nicotine dependence; Z86.73 Personal history of transient ischemic attack (TIA), and cerebral infarction without residual deficits; Z79.899 Other long term (current) drug therapy
CPT/HCPCS: 36415; 74022; 80053; 83690; 83735; 85025; 93005; 96360; 99284

== ENCOUNTER 2018-04-06 09:10 | Emergency (ER) | payer MEDICARE ==
[2018-04-06 09:24] VITALS: TEMP 98
[2018-04-06] MEDS ORDERED: SODIUM CHLORIDE 0.9% 500 ML 500 ML IV STA (09:35)
[2018-04-06] MEDS ORDERED: DOCUSATE 283 MG/5 ML ENEMA RECTAL STA ×2 (09:49→11:28)
[2018-04-06] MEDS ORDERED: MAGNESIUM CITRATE 296 ML BOTTLE PO ONE (09:49)
--- NOTE | 2018-04-06 09:49 | ED ---
General Adult HPI - General Chief complaint: Abdominal Pain Stated complaint: Constipation/burning on sides back Source: patient, RN notes reviewed, old records reviewed Mode of arrival: ambulatory Limitations: no limitations - History of Present Illness Initial comments: 67-year-old female patient presents to ED with constipation and abdominal pain. Patient states that she has not had a normal bowel movement in 1 week, had a very small bowel movement of only a few hard gissel approximately 3 days ago. Patient states that the abdominal pain began last night and is described as a generalized burning in all quadrants of her abdomen as well as her flank and lower back. The patient has not tried any pharmacological interventions for this pain, activity does not make the pain worse. Patient has a history of constipation which is managed by administration of milk of magnesia as well as enemas. Patient has tried milk of magnesia and an enema but it was effective in resolving patient's constipation. Patient denies all other complaints. Systemic: Pt denies fatigue, myalgia, fever/chills, rash. Pt denies weakness, night sweats, weight loss. Neuro: Pt denies headache, visual disturbances, syncope or pre-syncope. HEENT: Pt denies ocular discharge or irritation, otalgia, rhinorrhea, pharyngitis or notable lymphadenopathy. Cardiopulmonary: Pt denies chest pain, SOB, heart palpitations, dyspnea on exertion. Abdominal/GI: Pt denies n/v/d. : Pt denies dysuria, burning w/ urination, frequency/urgency. Denies new onset urinary or bowel incontinence. MSK: Pt denies myalgia, loss of strength or function in extremities. - Related Data Home Medications Medication Instructions Recorded Confirmed Calcium Carbonate [Tums] 500 mg PO QID 02/20/18 02/20/18 QUEtiapine [SEROquel] 25 mg PO HS 02/20/18 02/20/18 Ranitidine HCl [Zantac] 150 mg PO BID 02/20/18 02/20/18 Previous Rx's Medication Instructions Recorded Omeprazole [PriLOSEC] 40 mg PO DAILY #30 capsule. 02/20/18 Docusate [Colace] 100 mg PO BID #14 cap 04/06/18 Magnesium Citrate [Citrate of 296 ml PO ONCE #1 ml 04/06/18 Magnesia] Allergies Allergy/AdvReac Type Severity Reaction Status Date / Time No Known Allergies Allergy Verified 02/20/18 07:27 Review of Systems ROS Statement: Those systems with pertinent positive or pertinent negative responses have been documented in the HPI. ROS Other: All systems not noted in ROS Statement are negative. 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 History of Any Multi-Drug Resistant Organisms: None Reported Past Surgical History: Adenoidectomy, Breast Surgery, Tonsillectomy, Tubal Ligation Additional Past Surgical History / Comment(s): Surgery for prolapsed rectum, colonoscopy, bilateral breast mastectomy, benign skin bx. Past Anesthesia/Blood Transfusion Reactions: No Reported Reaction Additional Past Anesthesia/Blood Transfusion Reaction / Comment(s): CLAUSTERPHOBIA Past Psychological History: Anxiety, Depression Smoking Status: Former smoker Past Alcohol Use History: None Reported Past Drug Use History: None Reported - Past Family History Father Family Medical History: Cancer, Rheumatoid Arthritis (RA) Additional Family Medical History / Comment(s): SKIN CANCER, HEART PROBLEMS (PT NOT SURE WHAT TYPE) Mother Family Medical History: Dementia, Deep Vein Thrombosis (DVT), Osteoarthritis (OA ) General Exam - General Exam Comments Initial Comments: Constitutional: NAD, AOX3, Pt has pleasant affect. HEENT: NC/AT, trachea midline, neck supple, no lymphadenopathy. Posterior pharynx non erythematous, without exudates. External ears appear normal, without discharge. Mucous membranes moist. Eyes PERRLA, EOM intact. There is no scleral icterus. No pallor noted. Cardiopulmonary: RRR, no murmurs, rubs or gallops, no JVD noted. Lungs CTAB in anterior and posterior macario. No peripheral edema. Abdominal exam: Abdomen soft and non-distended. Abdomen non-tender to palpation in all 4 quadrants. No guarding or rigidity. No signs of peritoneal irritation. No ecchymoses. Bowel sounds active in LLQ. No hepatosplenomegaly. CVA tenderness negative. Neuro: CN II-XII grossly intact. Limitations: no limitations Course Vital Signs 04/06/18 04/06/18 09:20 11:32 Temperature 98.0 F Pulse Rate 73 66 Respiratory 18 16 Rate Blood Pressure 136/90 121/44 O2 Sat by Pulse 99 99 Oximetry Medical Decision Making - Medical Decision Making 67-year-old female patient presented to ED with one week of constipation and abdominal pain. Investigations of intra-abdominal pathology were conducted including complete blood count, CMP, amylase/lipase, UA, lactic acid; all which were nonimpressive. KUB plain film was also conducted which displayed a non- obstructive gas pattern, and a mild amount of stool within the colon. Patient was administered magnesium citrate by mouth. Patient was not able to tolerate enema and declined digital disimpaction procedure. Patient elected to be discharged with outpatient by mouth stool softeners. Patient to return to ED if not able to complete a bowel movement within 36 hours, if new abdominal pain develops, or any other new symptoms. Patient to follow up with primary care provider in 1-2 days. - Lab Data Result diagrams: 04/06/18 10:24 04/06/18 10:24 Lab Results 04/06/18 04/06/18 04/06/18 Range/Units 10:24 10:24 10:24 WBC 7.2 (3.8-10.6) k/uL RBC 4.90 (3.80-5.40) m/uL Hgb 14.7 (11.4-16.0) gm/dL Hct 46.1 H (34.0-46.0) % MCV 94.1 (80.0-100.0) fL MCH 29.9 (25.0-35.0) pg MCHC 31.8 (31.0-37.0) g/dL RDW 13.3 (11.5-15.5) % Plt Count 314 (150-450) k/uL Neutrophils % 67 % Lymphocytes % 22 % Monocytes % 6 % Eosinophils % 2 % Basophils % 1 % Neutrophils # 4.8 (1.3-7.7) k/uL Lymphocytes # 1.6 (1.0-4.8) k/uL Monocytes # 0.4 (0-1.0) k/uL Eosinophils # 0.2 (0-0.7) k/uL Basophils # 0.0 (0-0.2) k/uL Sodium 141 (137-145) mmol/L Potassium 5.0 (3.5-5.1) mmol/L Chloride 105 (98-107) mmol/L Carbon Dioxide 32 H (22-30) mmol/L Anion Gap 4 mmol/L BUN 33 H (7-17) mg/dL Creatinine 1.09 H (0.52-1.04) mg/dL Est GFR (CKD-EPI)AfAm 60 (>60 ml/min/1.73 sqM) Est GFR (CKD-EPI)NonAf 52 (>60 ml/min/1.73 sqM) Glucose 80 (74-99) mg/dL Plasma Lactic Acid Abundio (0.7-2.0) mmol/L Calcium 9.6 (8.4-10.2) mg/dL Total Bilirubin 0.6 (0.2-1.3) mg/dL AST 16 (14-36) U/L ALT 32 (9-52) U/L Alkaline Phosphatase 69 (38-126) U/L Total Protein 7.2 (6.3-8.2) g/dL Albumin 4.2 (3.5-5.0) g/dL Amylase 77 (30-110) U/L Lipase 75 (23-300) U/L Urine Color Light Yellow Urine Appearance Clear (Clear) Urine pH 6.5 (5.0-8.0) Ur Specific [place] 1.018 (1.001-1.035) Urine Protein Negative (Negative) Urine Glucose (UA) Negative (Negative) Urine Ketones Negative (Negative) Urine Blood Negative (Negative) Urine Nitrite Negative (Negative) Urine Bilirubin Negative (Negative) Urine Urobilinogen <2.0 (<2.0) mg/dL Ur Leukocyte Esterase Trace H (Negative) Urine RBC 1 (0-5) /hpf Urine WBC <1 (0-5) /hpf Ur Squamous Epith Cells 1 (0-4) /hpf Urine Mucus Rare H (None) /hpf 04/06/18 Range/Units 10:24 WBC (3.8-10.6) k/uL RBC (3.80-5.40) m/uL Hgb (11.4-16.0) gm/dL Hct (34.0-46.0) % MCV (80.0-100.0) fL MCH (25.0-35.0) pg MCHC (31.0-37.0) g/dL RDW (11.5-15.5) % Plt Count (150-450) k/uL Neutrophils % % Lymphocytes % % Monocytes % % Eosinophils % % Basophils % % Neutrophils # (1.3-7.7) k/uL Lymphocytes # (1.0-4.8) k/uL Monocytes # (0-1.0) k/uL Eosinophils # (0-0.7) k/uL Basophils # (0-0.2) k/uL Sodium (137-145) mmol/L Potassium (3.5-5.1) mmol/L Chloride (98-107) mmol/L Carbon Dioxide (22-30) mmol/L Anion Gap mmol/L BUN (7-17) mg/dL Creatinine (0.52-1.04) mg/dL Est GFR (CKD-EPI)AfAm (>60 ml/min/1.73 sqM) Est GFR (CKD-EPI)NonAf (>60 ml/min/1.73 sqM) Glucose (74-99) mg/dL Plasma Lactic Acid Abundio 0.8 (0.7-2.0) mmol/L Calcium (8.4-10.2) mg/dL Total Bilirubin (0.2-1.3) mg/dL AST (14-36) U/L ALT (9-52) U/L Alkaline Phosphatase (38-126) U/L Total Protein (6.3-8.2) g/dL Albumin (3.5-5.0) g/dL Amylase (30-110) U/L Lipase (23-300) U/L Urine Color Urine Appearance (Clear) Urine pH (5.0-8.0) Ur Specific [place] (1.001-1.035) Urine Protein (Negative) Urine Glucose (UA) (Negative) Urine Ketones (Negative) Urine Blood (Negative) Urine Nitrite (Negative) Urine Bilirubin (Negative) Urine Urobilinogen (<2.0) mg/dL Ur Leukocyte Esterase (Negative) Urine RBC (0-5) /hpf Urine WBC (0-5) /hpf Ur Squamous Epith Cells (0-4) /hpf Urine Mucus (None) /hpf Disposition Clinical Impression: Constipation Disposition: HOME SELF-CARE Condition: Good Instructions: Constipation (ED) Additional Instructions: Patient to adhere to previously discussed treatment plan and will take medication(s) as directed. Patient to follow up with PCP in 1-2 days. Patient to return to ED if symptoms do not improve. Prescriptions: Docusate [Colace] 100 mg PO BID #14 cap Magnesium Citrate [Citrate of Magnesia] 296 ml PO ONCE #1 ml Is patient prescribed a controlled substance at d/c from ED?: No Referrals: Raymond Ovalle DO [Primary Care Provider] - 1-2 days
[2018-04-06 10:55] LABS: Basophils % (A) 1 %; Eosinophils # (A) 0.2 k/uL (0-0.7); Eosinophils % (A) 2 %; HCT 46.1 % (34.0-46.0); HGB 14.7 gm/dL (11.4-16.0); Lymphocytes # (A) 1.6 k/uL (1.0-4.8); Lymphocytes % (A) 22 %; MCH 29.9 pg (25.0-35.0); MCHC 31.8 g/dL (31.0-37.0); MCV 94.1 fL (80.0-100.0); Mean Platelet Volume 7.8; Monocytes # (A) 0.4 k/uL (0-1.0); Monocytes % (A) 6 %; Neutrophils # (A) 4.8 k/uL (1.3-7.7); Neutrophils % (A) 67 %; Platelet Count 314 k/uL (150-450); RDW 13.3 % (11.5-15.5); WBC 7.2 k/uL (3.8-10.6)
[2018-04-06 11:03] LABS: Appearance,Urine Clear (Clear); Bilirubin,Urine Negative (Negative); Blood,Urine Negative (Negative); Color,Urine Light Yellow; Glucose,Urine (UA) Negative (Negative); Ketones,Urine Negative (Negative); Leukocyte Esterase,Urine Trace (Negative); Mucus,Urine Rare /hpf; Nitrite,Urine Negative (Negative); PH, Urine 6.5 (5.0-8.0); Protein,Urine Negative (Negative); RBC,Urine 1 /hpf (0-5); Specific Gravity,Urine 1.018 (1.001-1.035); Squamous Epithelial Cell,Urine 1 /hpf (0-4); Urobilinogen,Urine <2.0 mg/dL (<2.0); WBC,Urine <1 /hpf (0-5)
[2018-04-06 11:06] LABS: Albumin 4.2 g/dL (3.5-5.0); Calcium 9.6 mg/dL (8.4-10.2); Total Bilirubin 0.6 mg/dL (0.2-1.3); Total Protein 7.2 g/dL (6.3-8.2)
--- NOTE | 2018-04-06 11:06 | XR ---
EXAMINATION TYPE: XR KUB DATE OF EXAM: 04/06/2018 COMPARISON: NONE HISTORY: Pain TECHNIQUE: Single supine KUB image of the abdomen is obtained FINDINGS: Small bowel demonstrates no evidence for dilatation or air fluid levels. Gas and fecal material is seen in non-distended colon. No convincing evidence for pneumoperitoneum. No unusual calcifications. The lung bases are clear. The osseous structures are intact. IMPRESSION: 1. Overall nonobstructive bowel gas pattern.
[2018-04-06 11:33] VITALS: BP 121/44; PULSE 66; RESP 16
== END 2018-04-06 12:43 | disposition home or self-care (01) ==
LOC: EC 09:10
DX: K59.00 Constipation, unspecified (principal); F32.9 Major depressive disorder, single episode, unspecified; Z87.891 Personal history of nicotine dependence; Z53.29 Procedure and treatment not carried out because of patient's decision for other reasons; Z86.73 Personal history of transient ischemic attack (TIA), and cerebral infarction without residual deficits; Z85.3 Personal history of malignant neoplasm of breast; Z92.21 Personal history of antineoplastic chemotherapy; Z98.51 Tubal ligation status; Z79.899 Other long term (current) drug therapy
CPT/HCPCS: 36415; 74018; 80053; 81001; 82150; 83605; 83690; 85025; 99284

== ENCOUNTER 2018-04-27 11:29 | Emergency (ER) | payer MEDICARE ==
[2018-04-27 11:41] VITALS: RESP 18
[2018-04-27] MEDS ORDERED: SODIUM CHLORIDE 0.9% 1,000 ML IV STA (12:02)
[2018-04-27] MEDS ORDERED: FAMOTIDINE 20 MG/2 ML VIAL IV STA (12:02)
[2018-04-27] MEDS ORDERED: ONDANSETRON 4 MG/2 ML VIAL IVP STA (12:02)
[2018-04-27] MEDS ORDERED: MAG HYDROX/AL HYDROX/SIMETH 30 ML, HYOSCYAMINE ELIXIR 10 ML, CIMETIDINE HCL 300 MG, LID... PO STA ×4 (12:02)
--- NOTE | 2018-04-27 12:49 | ED ---
Abdominal Pain HPI - General Source: patient, RN notes reviewed Mode of arrival: wheelchair Limitations: no limitations <Tenzin Palacios - Last Filed: 04/27/18 14:11> <Alfredo Andrade - Last Filed: 04/27/18 14:28> - General Chief Complaint: Abdominal Pain Stated Complaint: abd pain Time Seen by Provider: 04/27/18 11:43 - History of Present Illness Initial Comments: 67-year-old female sent emergency Department chief complaint of abdominal pain, abdominal bloating. Patient states that she's had symptoms last 2-3 days. Patient states she feels very bloated and constipated. She has not had a bowel movement. Patient states she was recently in the emergency department for constipation. Patient also complains that she's having acid reflux states that she's been vomiting bile and has a bad taste in her mouth. She denies any chest pain or shortness of breath. Patient states that she has not tried taking anything for her constipation or acid reflux. Patient reports no fever no chills. Patient denies any dysuria or hematuria (Tenzin Palacios) - Related Data Home Medications Medication Instructions Recorded Confirmed Calcium Carbonate [Tums] 500 mg PO QID 02/20/18 02/20/18 QUEtiapine [SEROquel] 25 mg PO HS 02/20/18 02/20/18 Ranitidine HCl [Zantac] 150 mg PO BID 02/20/18 02/20/18 Previous Rx's Medication Instructions Recorded Omeprazole [PriLOSEC] 40 mg PO DAILY #30 capsule. 02/20/18 Docusate [Colace] 100 mg PO BID #14 cap 04/06/18 Magnesium Citrate [Citrate of 296 ml PO ONCE #1 ml 04/06/18 Magnesia] Omeprazole 40 mg PO DAILY #14 capsule. 04/27/18 Allergies Allergy/AdvReac Type Severity Reaction Status Date / Time No Known Allergies Allergy Verified 04/27/18 11:41 Review of Systems ROS Other: All systems not noted in ROS Statement are negative. <Tenzin Palacios - Last Filed: 04/27/18 14:11> ROS Other: All systems not noted in ROS Statement are negative. <Alfredo Andrade - Last Filed: 04/27/18 14:28> ROS Statement: Those systems with pertinent positive or pertinent negative responses have been documented in the HPI. 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 History of Any Multi-Drug Resistant Organisms: None Reported Past Surgical History: Adenoidectomy, Breast Surgery, Tonsillectomy, Tubal Ligation Additional Past Surgical History / Comment(s): Surgery for prolapsed rectum, colonoscopy, bilateral breast mastectomy, benign skin bx. Past Anesthesia/Blood Transfusion Reactions: No Reported Reaction Additional Past Anesthesia/Blood Transfusion Reaction / Comment(s): CLAUSTERPHOBIA Past Psychological History: Anxiety, Depression Smoking Status: Former smoker Past Alcohol Use History: None Reported Past Drug Use History: None Reported - Past Family History Father Family Medical History: Cancer, Rheumatoid Arthritis (RA) Additional Family Medical History / Comment(s): SKIN CANCER, HEART PROBLEMS (PT NOT SURE WHAT TYPE) Mother Family Medical History: Dementia, Deep Vein Thrombosis (DVT), Osteoarthritis (OA ) <Tenzin Palacios - Last Filed: 04/27/18 14:11> General Exam Limitations: no limitations General appearance: alert, in no apparent distress Head exam: Present: atraumatic, normocephalic, normal inspection ENT exam: Present: normal exam, normal oropharynx, mucous membranes moist Neck exam: Present: normal inspection. Absent: tenderness, meningismus, lymphadenopathy Respiratory exam: Present: normal lung sounds bilaterally. Absent: respiratory distress, wheezes, rales, rhonchi, stridor Cardiovascular Exam: Present: normal rhythm, bradycardia (58 heart rate), normal heart sounds. Absent: systolic murmur, diastolic murmur, rubs, gallop, clicks GI/Abdominal exam: Present: soft, tenderness (Mild midabdominal tenderness), normal bowel sounds. Absent: distended, guarding, rebound, rigid Neurological exam: Present: alert, oriented X3, CN II-XII intact Skin exam: Present: warm, dry, intact, normal color. Absent: rash <Tenzin Palacios - Last Filed: 04/27/18 14:11> Course <Tenzin Palacios - Last Filed: 04/27/18 14:11> <Alfredo Andrade - Last Filed: 04/27/18 14:28> Vital Signs 04/27/18 11:38 Temperature 97.4 F L Pulse Rate 58 L Respiratory 18 Rate Blood Pressure 106/63 O2 Sat by Pulse 94 L Oximetry - Reevaluation(s) Reevaluation #1: 04/27/18 14:11 Patient was updated on results and reevaluated. She does feel improved after GI cocktail. She is updated on CT which showed findings of enteritis no obstruction and I have a hernia which was known to her. (Tenzin Palacios) Reevaluation #2: 04/27/18 14:27 PA supervision: I proceeded [id number] evaluation the patient she had abdominal pain for 2 or 3 days constipation for the same time workup is unremarkable except for some chronic renal insufficiency. Patient is symptom free at the time of my examination she will be discharged I do agree with the assessment and plan. (Alfredo Andrade) Medical Decision Making - Lab Data Result diagrams: 04/27/18 12:30 04/27/18 12:30 <Tenzin Palacios - Last Filed: 04/27/18 14:11> - Lab Data Result diagrams: 04/27/18 12:30 04/27/18 12:30 <Alfredo Andrade - Last Filed: 04/27/18 14:28> - Medical Decision Making 67-year-old female sent for abdominal pain. Patient is improved after GI cocktail. Patient has evidence of enteritis and has acid reflux. Patient started on omeprazole 40 mg once daily will follow-up with GI and return for any worsening symptoms. (Tenzin Palacios) - Lab Data Lab Results 04/27/18 04/27/18 04/27/18 Range/Units 12:30 12:30 12:30 WBC 6.6 (3.8-10.6) k/uL RBC 4.73 (3.80-5.40) m/uL Hgb 13.9 (11.4-16.0) gm/dL Hct 44.3 (34.0-46.0) % MCV 93.7 (80.0-100.0) fL MCH 29.5 (25.0-35.0) pg MCHC 31.5 (31.0-37.0) g/dL RDW 13.3 (11.5-15.5) % Plt Count 280 (150-450) k/uL Neutrophils % 63 % Lymphocytes % 25 % Monocytes % 7 % Eosinophils % 2 % Basophils % 1 % Neutrophils # 4.1 (1.3-7.7) k/uL Lymphocytes # 1.7 (1.0-4.8) k/uL Monocytes # 0.5 (0-1.0) k/uL Eosinophils # 0.2 (0-0.7) k/uL Basophils # 0.1 (0-0.2) k/uL Sodium 141 (137-145) mmol/L Potassium 4.9 (3.5-5.1) mmol/L Chloride 108 H (98-107) mmol/L Carbon Dioxide 27 (22-30) mmol/L Anion Gap 6 mmol/L BUN 29 H (7-17) mg/dL Creatinine 1.06 H (0.52-1.04) mg/dL Est GFR (CKD-EPI)AfAm 62 (>60 ml/min/1.73 sqM) Est GFR (CKD-EPI)NonAf 54 (>60 ml/min/1.73 sqM) Glucose 82 (74-99) mg/dL Calcium 9.5 (8.4-10.2) mg/dL Total Bilirubin 0.4 (0.2-1.3) mg/dL AST 15 (14-36) U/L ALT 26 (9-52) U/L Alkaline Phosphatase 63 (38-126) U/L Troponin I <0.012 (0.000-0.034) ng/mL Total Protein 7.1 (6.3-8.2) g/dL Albumin 4.2 (3.5-5.0) g/dL Amylase 71 (30-110) U/L Lipase 92 (23-300) U/L Urine Color Urine Appearance (Clear) Urine pH (5.0-8.0) Ur Specific [place] (1.001-1.035) Urine Protein (Negative) Urine Glucose (UA) (Negative) Urine Ketones (Negative) Urine Blood (Negative) Urine Nitrite (Negative) Urine Bilirubin (Negative) Urine Urobilinogen (<2.0) mg/dL Ur Leukocyte Esterase (Negative) 04/27/18 Range/Units 12:30 WBC (3.8-10.6) k/uL RBC (3.80-5.40) m/uL Hgb (11.4-16.0) gm/dL Hct (34.0-46.0) % MCV (80.0-100.0) fL MCH (25.0-35.0) pg MCHC (31.0-37.0) g/dL RDW (11.5-15.5) % Plt Count (150-450) k/uL Neutrophils % % Lymphocytes % % Monocytes % % Eosinophils % % Basophils % % Neutrophils # (1.3-7.7) k/uL Lymphocytes # (1.0-4.8) k/uL Monocytes # (0-1.0) k/uL Eosinophils # (0-0.7) k/uL Basophils # (0-0.2) k/uL Sodium (137-145) mmol/L Potassium (3.5-5.1) mmol/L Chloride (98-107) mmol/L Carbon Dioxide (22-30) mmol/L Anion Gap mmol/L BUN (7-17) mg/dL Creatinine (0.52-1.04) mg/dL Est GFR (CKD-EPI)AfAm (>60 ml/min/1.73 sqM) Est GFR (CKD-EPI)NonAf (>60 ml/min/1.73 sqM) Glucose (74-99) mg/dL Calcium (8.4-10.2) mg/dL Total Bilirubin (0.2-1.3) mg/dL AST (14-36) U/L ALT (9-52) U/L Alkaline Phosphatase (38-126) U/L Troponin I (0.000-0.034) ng/mL Total Protein (6.3-8.2) g/dL Albumin (3.5-5.0) g/dL Amylase (30-110) U/L Lipase (23-300) U/L Urine Color Yellow Urine Appearance Clear (Clear) Urine pH 5.5 (5.0-8.0) Ur Specific [place] 1.021 (1.001-1.035) Urine Protein Negative (Negative) Urine Glucose (UA) Negative (Negative) Urine Ketones Negative (Negative) Urine Blood Negative (Negative) Urine Nitrite Negative (Negative) Urine Bilirubin Negative (Negative) Urine Urobilinogen <2.0 (<2.0) mg/dL Ur Leukocyte Esterase Negative (Negative) Disposition Is patient prescribed a controlled substance at d/c from ED?: No Time of Disposition: 14:15 <Tenzin Palacios - Last Filed: 04/27/18 14:11> <Alfredo Andrade - Last Filed: 04/27/18 14:28> Clinical Impression: Enteritis, GERD (gastroesophageal reflux disease) Disposition: HOME SELF-CARE Condition: Stable Instructions: Diet for Stomach Ulcers and Gastritis (ED), Gastroesophageal Reflux Disease (ED) Additional Instructions: Please return to the Emergency Department if symptoms worsen or any other concerns. Prescriptions: Omeprazole 40 mg PO DAILY #14 capsule. Referrals: Raymond Ovalle DO [Primary Care Provider] - 1-2 days Kyree Sorenson MD [STAFF PHYSICIAN] - 1-2 days
--- NOTE | 2018-04-27 12:57 | XR ---
EXAMINATION TYPE: XR KUB , 2 VIEWS DATE OF EXAM ORDERED: 04/27/2018 HISTORY: abdominal pain. COMPARISON: Previous study dated 04/06/2018. FINDINGS: The lung bases are clear. Within the abdomen, the abdominal gas pattern is normal without evidence of obstruction or free air. There are scattered air-fluid levels present. No unusual calcifications are seen. IMPRESSION: FINDINGS MOST CONSISTENT WITH GENERALIZED ILEUS.
--- NOTE | 2018-04-27 13:01 | XR ---
EXAMINATION TYPE: XR chest 2V DATE OF EXAM: 04/27/2018 HISTORY: Cough/pain. REFERENCE: Previous study dated 03/27/2017. FINDINGS: Lung volumes are prominent. The lungs are clear. Pleural spaces are clear. There are multip le healed rib fractures on the left. This is an interval development. IMPRESSION: NO ACUTE INTRATHORACIC ABNORMALITY.
[2018-04-27 13:03] LABS: Basophils # (A) 0.1 k/uL (0-0.2); Basophils % (A) 1 %; Eosinophils # (A) 0.2 k/uL (0-0.7); Eosinophils % (A) 2 %; HCT 44.3 % (34.0-46.0); HGB 13.9 gm/dL (11.4-16.0); Lymphocytes # (A) 1.7 k/uL (1.0-4.8); Lymphocytes % (A) 25 %; MCH 29.5 pg (25.0-35.0); MCHC 31.5 g/dL (31.0-37.0); MCV 93.7 fL (80.0-100.0); Mean Platelet Volume 7.9; Monocytes # (A) 0.5 k/uL (0-1.0); Monocytes % (A) 7 %; Neutrophils # (A) 4.1 k/uL (1.3-7.7); Neutrophils % (A) 63 %; Platelet Count 280 k/uL (150-450); RBC 4.73 m/uL (3.80-5.40); RDW 13.3 % (11.5-15.5); WBC 6.6 k/uL (3.8-10.6)
[2018-04-27 13:07] LABS: Appearance,Urine Clear (Clear); Bilirubin,Urine Negative (Negative); Blood,Urine Negative (Negative); Color,Urine Yellow; Glucose,Urine (UA) Negative (Negative); Ketones,Urine Negative (Negative); Leukocyte Esterase,Urine Negative (Negative); Nitrite,Urine Negative (Negative); PH, Urine 5.5 (5.0-8.0); Protein,Urine Negative (Negative); Specific Gravity,Urine 1.021 (1.001-1.035); Urobilinogen,Urine <2.0 mg/dL (<2.0)
[2018-04-27 13:13] LABS: Albumin 4.2 g/dL (3.5-5.0); Calcium 9.5 mg/dL (8.4-10.2); Potassium 4.9 mmol/L (3.5-5.1); Total Bilirubin 0.4 mg/dL (0.2-1.3); Total Protein 7.1 g/dL (6.3-8.2)
--- NOTE | 2018-04-27 14:05 | CT ---
EXAMINATION TYPE: CT abdomen pelvis w con DATE OF EXAM: 04/27/2018 REFERENCE: Previous study dated 05/05/2014. HISTORY: Pain HISTORY: bloating, epigastric pain. CT DLP: 417.1 mGy Automated exposure control for dose reduction was used. TECHNIQUE: Helical acquisition through the abdomen and pelvis was obtained following the oral ingesti on of without Oral Contrast and following intravenous administration of 80 mL of Isovue 300. The data was reformatted in axial, coronal and sagittal projections. FINDINGS: Visualized portions of the lungs are clear. There is no pleural or pericardial fluid. The heart is not enlarged. There is a small sliding hiatal hernia present. Within the abdomen, the liver, spleen and gallbladder are unremarkable. Both adrenal glands are normal. Both kidneys demonstrate function and appear morphologically normal. The pancreas is unremarkable. There is no significant retroperitoneal, iliac or inguinal adenopathy. The bladder is unremarkable. Uterus and ovaries are not visualized. There is no significant diverticular change and there is no radiographic evidence of diverticulitis. The appendix is not visualized. The cecum and small bowel are focal fluid. Small bowel caliber is mildly prominent. There is no evide nce of obstruction. There is no evidence of free fluid or free air. There is a degenerative grade 1 spondylolisthesis of L4 and L5. There is degenerative disc disease, f acet arthropathy and mild hypertrophic spondylosis within the spine. IMPRESSION: 1. FINDINGS SUGGESTIVE OF MILD ENTERITIS. 2. FINDINGS HIATAL HERNIA. 3. DEGENERATIVE CHANGE WITHIN THE SPINE.
[2018-04-27 14:27] VITALS: BP 113/53; PULSE 59; TEMP 97.9
== END 2018-04-27 14:27 | disposition home or self-care (01) ==
LOC: EC 11:29
DX: K52.9 Noninfective gastroenteritis and colitis, unspecified (principal); K21.9 Gastro-esophageal reflux disease without esophagitis; N18.9 Chronic kidney disease, unspecified; F32.9 Major depressive disorder, single episode, unspecified; F41.9 Anxiety disorder, unspecified; Z87.891 Personal history of nicotine dependence; Z86.73 Personal history of transient ischemic attack (TIA), and cerebral infarction without residual deficits; Z85.3 Personal history of malignant neoplasm of breast; Z92.21 Personal history of antineoplastic chemotherapy; Z90.13 Acquired absence of bilateral breasts and nipples; Z98.51 Tubal ligation status; Z98.890 Other specified postprocedural states; Z79.899 Other long term (current) drug therapy
CPT/HCPCS: 36415; 80053; 82150; 83690; 84484; 85025; 81003; 71046; 74018; 74177; 99284; 96374; 96375; 96361; J2405; Q9967

== ENCOUNTER 2018-05-07 10:10 | Emergency (ER) | payer MEDICARE ==
[2018-05-07 10:38] VITALS: RESP 18
[2018-05-07] MEDS ORDERED: SODIUM CHLORIDE 0.9% 500 ML 500 ML IV STA (10:40)
--- NOTE | 2018-05-07 11:05 | ED ---
Abdominal Pain HPI - General Chief Complaint: Abdominal Pain Stated Complaint: abdominal pain & bloating/burning in mouth Time Seen by Provider: 05/07/18 10:39 Source: patient Mode of arrival: ambulatory Limitations: no limitations - History of Present Illness Initial Comments: 67-year-old female past medical history of GERD, breast cancer status post bilateral mastectomy, previous CVA in 2010, anxiety and depression presents today for abdominal distention times one month. Patient states she's had "stomach trouble" for the past month she describes this as a bloated feeling or distention. She states that it isnt really pain more discomfort from bloating sensation. She also noted an acidic taste in her mouth and dry mouth. Patient does have overall poor dentition she states she is not sure if this is caused by her teeth, denies facial swelling. Patient denies any belching, constipation , diarrhea melena or hematochezia patient denies any vomiting or nausea hematuria, urgency, frequency. Patient states her normal bowel movements are every couple days, last being 2 days ago. Patient denies any fever, chills, nightsweats, weight loss, chest pain, shortness of breath, dyspnea on exertion , jaw pain, upper extremity paresthesias. Pt has been evaluated multiple times for similar complaint, pt has not followed up with gastroenterology. Remainder of ROS (-). Upon arrival pt VS stable she is well appearing no acute distress. - Related Data Home Medications Medication Instructions Recorded Confirmed QUEtiapine [SEROquel] 50 mg PO HS 05/07/18 05/07/18 Previous Rx's Medication Instructions Recorded Magnesium Citrate [Citrate of 296 ml PO ONCE #1 ml 04/06/18 Magnesia] Allergies Allergy/AdvReac Type Severity Reaction Status Date / Time No Known Allergies Allergy Verified 05/07/18 11:47 Review of Systems ROS Statement: Those systems with pertinent positive or pertinent negative responses have been documented in the HPI. ROS Other: All systems not noted in ROS Statement are negative. Constitutional: Denies: fever, chills Eyes: Denies: eye discharge ENT: Denies: ear pain, throat pain, dental pain, hearing loss, epistaxis Respiratory: Denies: cough, dyspnea, wheezes, hemoptysis, stridor Cardiovascular: Denies: chest pain, palpitations, dyspnea on exertion Endocrine: Denies: fatigue Gastrointestinal: Denies: abdominal pain, nausea, vomiting, diarrhea, constipation, hematemesis, melena Genitourinary: Denies: urgency, dysuria Musculoskeletal: Denies: back pain Skin: Denies: rash, lesions Neurological: Denies: headache, weakness, numbness, paresthesias, confusion Past Medical History Past Medical History: Cancer, CVA/TIA, Osteoarthritis (OA), Rheumatoid Arthritis (RA), Seizure Disorder, Skin Disorder, Thyroid Disorder Additional Past Medical History / Comment(s): Cancer bilateral breasts with mastectomies/chemotherapy, 2006 CVA with slight dysphasia and mild R sided arm/ leg weakness, morganii syndrome, cellulitis R cheek, dental and chin abscess, last seizure 2009, hiatal hernia, bilateral cataracts, osteoporosis, UTI, hypothyroid. History of Any Multi-Drug Resistant Organisms: None Reported Past Surgical History: Adenoidectomy, Breast Surgery, Tonsillectomy, Tubal Ligation Additional Past Surgical History / Comment(s): Surgery for prolapsed rectum, colonoscopy, bilateral breast mastectomy, benign skin bx. Past Anesthesia/Blood Transfusion Reactions: No Reported Reaction Additional Past Anesthesia/Blood Transfusion Reaction / Comment(s): CLAUSTERPHOBIA Past Psychological History: Anxiety, Depression Smoking Status: Former smoker Past Alcohol Use History: None Reported Past Drug Use History: None Reported - Past Family History Father Family Medical History: Cancer, Rheumatoid Arthritis (RA) Additional Family Medical History / Comment(s): SKIN CANCER, HEART PROBLEMS (PT NOT SURE WHAT TYPE) Mother Family Medical History: Dementia, Deep Vein Thrombosis (DVT), Osteoarthritis (OA ) General Exam - General Exam Comments Initial Comments: General: The patient is awake and alert, in no distress, and does not appear acutely ill. Eye: Pupils are equal, round and reactive to light, extra-ocular movements are intact. No nystagmus. There is normal conjunctiva bilaterally. No signs of icterus. Ears, nose, mouth and throat: There are mucous membranes dry and no oral lesions. Poor dentition, no palpable abscesses. No facial swelling. Neck: The neck is supple, there is no tenderness or JVD. Cardiovascular: There is a regular rate and rhythm. No murmur, rub or gallop is appreciated. Respiratory: Lungs are clear to auscultation, respirations are non-labored, breath sounds are equal. No wheezes, stridor, rales, or rhonchi. Gastrointestinal: No noted diaphoresis, jaundice, pallor, protecting postures or squirming. Symmetrical pigmentation of abdomen without signs of inflammation, scars, or striae. Umbilicus mildline, inverted without swelling. No dilated veins. Abdomen contour scaphoid, no noted abdominal distention. No visible masses. No peristalsis, aortic pulsations, or ventral hernia. Bowel sounds audible in all 4 quadrants, unremarkable. No friction rubs or venous hums. No epigastic, hepatic or abdominal bruits. No tenderness to light or deep palpation, the abdomen including the right upper quadrant, left upper quadrant, periumbilical, epigastric, lower quadrants and pelvic regions. Rigidity or guarding.. Liver edge, not palpable. Spleen edge, right and left kidney not palpable. Superior bladder margin non-tender. Special Testing: Negative shifting dullness, fluid wave, [place], Rovsing, McBurney, [place]iel[place], cutaneous hyperesthesia. Negative Heel Jar test. No CVA tenderness. Digital rectal exam deferred. Negative luis turners or cullens sign Musculoskeletal: Normal ROM, no tenderness. Strength 5/5. Sensation intact. Radial pulses equal bilaterally 2+. Neurological: A&O x 3. CN II-XII intact, There are no obvious motor or sensory deficits. Coordination appears grossly intact. Speech is normal. Skin: Skin is warm and dry and no rashes or lesions are noted. Psychiatric: Cooperative, appropriate mood & affect, normal judgment. Limitations: no limitations Course Vital Signs 05/07/18 05/07/18 05/07/18 10:35 14:24 14:48 Temperature 97.9 F 98.2 F Pulse Rate 86 70 Respiratory 18 18 Rate Blood Pressure 112/72 132/84 O2 Sat by Pulse 97 98 Oximetry Medical Decision Making - Medical Decision Making Patient's vital signs within normal limits. Benign abdominal exam. CT of the abdomen negative for acute process. No noted constipation. No evidence of obstruction. Patient states this issue is chronic, she admits that has been going on for a few months. Patient does take antacid at home, Prilosec. Laboratory findings are remarkable, there is slightly hemolyzed potassium mildly elevated at 5.6. EKG no acute changes in comparison with previous. UA unremarkable. Mildly elevated BUN and creatinine most likely due to decreased fluid intake. Patient was given fluid bolus in emergency department. After discussing findings with patient I feel patient is stable for discharge with gastroenterology follow-up. Patient is agreeable with plan. Patient abdominal exam continues to be benign on reevaluation. Case discussed with Dr. Nelson who agrees with impression and plan. Patient discharged in stable condition patient denied questions upon discharge. Patient is aware that she needs to call to schedule appointment gastroenterology. I certainly patient to take Prilosec as directed. As well as to follow-up with primary care provider in next 1-2 days. - Lab Data Result diagrams: 05/07/18 11:34 05/07/18 11:34 Lab Results 05/07/18 05/07/18 05/07/18 Range/Units 11:34 11:34 11:34 WBC 6.7 (3.8-10.6) k/uL RBC 4.88 (3.80-5.40) m/uL Hgb 14.7 (11.4-16.0) gm/dL Hct 45.5 (34.0-46.0) % MCV 93.3 (80.0-100.0) fL MCH 30.1 (25.0-35.0) pg MCHC 32.3 (31.0-37.0) g/dL RDW 13.2 (11.5-15.5) % Plt Count 300 (150-450) k/uL Neutrophils % 67 % Lymphocytes % 21 % Monocytes % 7 % Eosinophils % 3 % Basophils % 1 % Neutrophils # 4.5 (1.3-7.7) k/uL Lymphocytes # 1.4 (1.0-4.8) k/uL Monocytes # 0.4 (0-1.0) k/uL Eosinophils # 0.2 (0-0.7) k/uL Basophils # 0.1 (0-0.2) k/uL Sodium 141 (137-145) mmol/L Potassium 5.6 H (3.5-5.1) mmol/L Chloride 106 (98-107) mmol/L Carbon Dioxide 29 (22-30) mmol/L Anion Gap 6 mmol/L BUN 28 H (7-17) mg/dL Creatinine 1.20 H (0.52-1.04) mg/dL Est GFR (CKD-EPI)AfAm 53 (>60 ml/min/1.73 sqM) Est GFR (CKD-EPI)NonAf 46 (>60 ml/min/1.73 sqM) Glucose 74 (74-99) mg/dL Calcium 9.6 (8.4-10.2) mg/dL Total Bilirubin 0.8 (0.2-1.3) mg/dL AST 17 (14-36) U/L ALT 28 (9-52) U/L Alkaline Phosphatase 54 (38-126) U/L Troponin I <0.012 (0.000-0.034) ng/mL Total Protein 7.5 (6.3-8.2) g/dL Albumin 4.3 (3.5-5.0) g/dL Amylase 73 (30-110) U/L Lipase 72 (23-300) U/L Urine Color Urine Appearance (Clear) Urine pH (5.0-8.0) Ur Specific [place] (1.001-1.035) Urine Protein (Negative) Urine Glucose (UA) (Negative) Urine Ketones (Negative) Urine Blood (Negative) Urine Nitrite (Negative) Urine Bilirubin (Negative) Urine Urobilinogen (<2.0) mg/dL Ur Leukocyte Esterase (Negative) 05/07/18 Range/Units 11:46 WBC (3.8-10.6) k/uL RBC (3.80-5.40) m/uL Hgb (11.4-16.0) gm/dL Hct (34.0-46.0) % MCV (80.0-100.0) fL MCH (25.0-35.0) pg MCHC (31.0-37.0) g/dL RDW (11.5-15.5) % Plt Count (150-450) k/uL Neutrophils % % Lymphocytes % % Monocytes % % Eosinophils % % Basophils % % Neutrophils # (1.3-7.7) k/uL Lymphocytes # (1.0-4.8) k/uL Monocytes # (0-1.0) k/uL Eosinophils # (0-0.7) k/uL Basophils # (0-0.2) k/uL Sodium (137-145) mmol/L Potassium (3.5-5.1) mmol/L Chloride (98-107) mmol/L Carbon Dioxide (22-30) mmol/L Anion Gap mmol/L BUN (7-17) mg/dL Creatinine (0.52-1.04) mg/dL Est GFR (CKD-EPI)AfAm (>60 ml/min/1.73 sqM) Est GFR (CKD-EPI)NonAf (>60 ml/min/1.73 sqM) Glucose (74-99) mg/dL Calcium (8.4-10.2) mg/dL Total Bilirubin (0.2-1.3) mg/dL AST (14-36) U/L ALT (9-52) U/L Alkaline Phosphatase (38-126) U/L Troponin I (0.000-0.034) ng/mL Total Protein (6.3-8.2) g/dL Albumin (3.5-5.0) g/dL Amylase (30-110) U/L Lipase (23-300) U/L Urine Color Yellow Urine Appearance Clear (Clear) Urine pH 6.0 (5.0-8.0) Ur Specific [place] 1.023 (1.001-1.035) Urine Protein Trace H (Negative) Urine Glucose (UA) Negative (Negative) Urine Ketones Negative (Negative) Urine Blood Negative (Negative) Urine Nitrite Negative (Negative) Urine Bilirubin Negative (Negative) Urine Urobilinogen <2.0 (<2.0) mg/dL Ur Leukocyte Esterase Negative (Negative) - EKG Data EKG Comments: Ventricular rate 59 bpm Interval 146 ms QRS duration 124 ms QT/QTC 428/423 ms, this is sinus bradycardia there is redemonstration of previously noted right bundle-branch block on most recent previous EKG. No ST elevation or depression noted. Disposition Clinical Impression: Abdominal distention Disposition: HOME SELF-CARE Condition: Good Instructions: Gas and Bloating (ED), Abdominal Pain (ED) Additional Instructions: Please use previously prescribes home medication as discussed. Please follow- up with family doctor in the next 2 days, please follow up with gastroenterology for further evaluation with Dr. Sorenson. Please return to emergency room if the symptoms increase or worsen or for any other concerns. Is patient prescribed a controlled substance at d/c from ED?: No Referrals: Raymond Ovalle DO [Primary Care Provider] - 1-2 days Kyree Sorenson MD [STAFF PHYSICIAN] - 1-2 days Time of Disposition: 14:34
[2018-05-07 12:01] LABS: Basophils # (A) 0.1 k/uL (0-0.2); Basophils % (A) 1 %; Eosinophils # (A) 0.2 k/uL (0-0.7); Eosinophils % (A) 3 %; HCT 45.5 % (34.0-46.0); HGB 14.7 gm/dL (11.4-16.0); Lymphocytes # (A) 1.4 k/uL (1.0-4.8); Lymphocytes % (A) 21 %; MCH 30.1 pg (25.0-35.0); MCHC 32.3 g/dL (31.0-37.0); MCV 93.3 fL (80.0-100.0); Mean Platelet Volume 8.1; Monocytes # (A) 0.4 k/uL (0-1.0); Monocytes % (A) 7 %; Neutrophils # (A) 4.5 k/uL (1.3-7.7); Neutrophils % (A) 67 %; Platelet Count 300 k/uL (150-450); RBC 4.88 m/uL (3.80-5.40); RDW 13.2 % (11.5-15.5); WBC 6.7 k/uL (3.8-10.6)
[2018-05-07 12:12] LABS: Appearance,Urine Clear (Clear); Bilirubin,Urine Negative (Negative); Blood,Urine Negative (Negative); Color,Urine Yellow; Glucose,Urine (UA) Negative (Negative); Ketones,Urine Negative (Negative); Leukocyte Esterase,Urine Negative (Negative); Nitrite,Urine Negative (Negative); Protein,Urine Trace (Negative); Specific Gravity,Urine 1.023 (1.001-1.035); Urobilinogen,Urine <2.0 mg/dL (<2.0)
[2018-05-07 12:14] LABS: Albumin 4.3 g/dL (3.5-5.0); Calcium 9.6 mg/dL (8.4-10.2); Total Bilirubin 0.8 mg/dL (0.2-1.3); Total Protein 7.5 g/dL (6.3-8.2)
--- NOTE | 2018-05-07 12:16 | XR ---
EXAMINATION TYPE: XR KUB DATE OF EXAM: 05/07/2018 COMPARISON: NONE HISTORY: Pain TECHNIQUE: Single supine KUB image of the abdomen is obtained FINDINGS: Small bowel demonstrates no evidence for dilatation or air fluid levels. Gas and fecal material is seen in non-distended colon. No convincing evidence for pneumoperitoneum. No unusual calcifications. The lung bases are clear. The osseous structures are intact. IMPRESSION: 1. Overall nonobstructive bowel gas pattern.
[2018-05-07 12:20] LABS: Potassium 5.6 mmol/L (3.5-5.1)
--- NOTE | 2018-05-07 13:44 | CT ---
EXAMINATION TYPE: CT abdomen pelvis wo con DATE OF EXAM: 05/07/2018 COMPARISON: 04/27/2018 HISTORY: Distention CT DLP: 268.4 mGycm Examination of the solid and hollow viscera is limited given the lack of contrast. FINDINGS: LUNG BASES: No evidence for nodule. No evidence for infiltrate. LIVER/GB: Small gallstones noted. No space-occupying hepatic lesion. PANCREAS: No pancreatic mass identified. No inflammatory process seen. SPLEEN: No evidence for splenomegaly. No intrasplenic lesions seen. ADRENALS: No adrenal nodules identified. No evidence for thickening. KIDNEYS: No evidence for renal mass. No nephrolithiasis. No hydronephrosis. BOWEL: Small sliding-type hiatal hernia redemonstrated. Appendix has a normal appearance. No evidence of bowel obstruction. Persistent wall thickening of the small bowel may reflect nonspecific enteriti s. Lymph nodes: No evidence for adenopathy greater than 1 cm. Abdominal aorta: Atheromatous changes seen. No evidence for aneurysm. Genital organs: Atrophic changes of the uterus. Other: No significant abnormality. IMPRESSION: 1. Nonspecific enteritis. No evidence for obstructive change. 2. No evidence for free air or abscess. 3. Small gallstones.
[2018-05-07 14:26] VITALS: BP 132/84; PULSE 70
[2018-05-07 14:49] VITALS: TEMP 98.2
== END 2018-05-07 14:49 | disposition home or self-care (01) ==
LOC: EC 10:10
DX: R14.0 Abdominal distension (gaseous) (principal); E87.5 Hyperkalemia; R79.89 Other specified abnormal findings of blood chemistry; F32.9 Major depressive disorder, single episode, unspecified; Z85.3 Personal history of malignant neoplasm of breast; Z86.73 Personal history of transient ischemic attack (TIA), and cerebral infarction without residual deficits; Z92.21 Personal history of antineoplastic chemotherapy; Z98.51 Tubal ligation status; Z87.891 Personal history of nicotine dependence; Z79.899 Other long term (current) drug therapy
CPT/HCPCS: 36415; 74018; 74176; 80053; 81003; 82150; 83690; 84484; 85025; 93005; 96360; 96361; 99285

== ENCOUNTER 2018-05-13 17:22 | Observation (INO) | payer MEDICARE ==
--- NOTE | 2018-05-13 17:59 | XR ---
EXAMINATION TYPE: XR KUB DATE OF EXAM: 05/13/2018 COMPARISON: 04/30/1718 HISTORY: Vomiting and constipation TECHNIQUE: 2 views upright FINDINGS: There is no sign of intestinal obstruction or pneumoperitoneum. Fecal pattern is normal. Th ere are no pathologic calcifications over the kidneys. Lung bases are clear. IMPRESSION: Nonacute abdomen.
[2018-05-13 19:08] LABS: Basophils % (A) 1 %; Eosinophils # (A) 0.1 k/uL (0-0.7); Eosinophils % (A) 2 %; HCT 43.8 % (34.0-46.0); HGB 13.6 gm/dL (11.4-16.0); Lymphocytes # (A) 1.7 k/uL (1.0-4.8); Lymphocytes % (A) 25 %; MCH 28.6 pg (25.0-35.0); MCV 92.4 fL (80.0-100.0); Mean Platelet Volume 7.8; Monocytes # (A) 0.5 k/uL (0-1.0); Monocytes % (A) 8 %; Neutrophils # (A) 4.2 k/uL (1.3-7.7); Neutrophils % (A) 63 %; Platelet Count 329 k/uL (150-450); RBC 4.74 m/uL (3.80-5.40); RDW 13.2 % (11.5-15.5); WBC 6.7 k/uL (3.8-10.6)
[2018-05-13 19:21] LABS: Albumin 3.9 g/dL (3.5-5.0); Calcium 9.7 mg/dL (8.4-10.2); Potassium 4.3 mmol/L (3.5-5.1); Total Bilirubin 0.3 mg/dL (0.2-1.3); Total Protein 6.9 g/dL (6.3-8.2)
--- NOTE | 2018-05-13 20:36 | US ---
EXAMINATION TYPE: US abdomen limited DATE OF EXAM: 05/13/2018 COMPARISON: 11/29/2016 CLINICAL HISTORY: Pain. Nausea and vomiting EXAM MEASUREMENTS: Liver Length: 12.4 cm Gallbladder Wall: 0.3 cm CBD: 0.7 cm Right Kidney: 8.0 x 3.9 x 3.5 cm Pancreas: Hyperechoic duct seen 0.3cm. Liver: wnl Gallbladder: Echogenic foci seen. Evidence for sonographic Riley's sign: No CBD: Upper limits. Right Kidney: Cortical thinning IMPRESSION: No gallstones or dilated ducts. No focal liver defect. Mild right renal atrophy. There is progression of renal atrophy compared to old exam.
[2018-05-13] MEDS ORDERED: ONDANSETRON 4 MG/2 ML VIAL IVP STA (20:53)
[2018-05-13] MEDS ORDERED: PANTOPRAZOLE 40 MG/10 ML VIAL IVP STA (20:53)
--- NOTE | 2018-05-13 21:20 | ED ---
Abdominal Pain HPI - General Chief Complaint: Abdominal Pain Stated Complaint: Abd Pain Time Seen by Provider: 05/13/18 17:45 Source: patient Mode of arrival: ambulatory Limitations: no limitations - History of Present Illness Initial Comments: 67 yo female with PMH history of GERD, hiatal hernia presenting today of cc of constipation, bloating, and burning epigastric pain. Pt states that she has had GERD and experiencing increasing acidic vomiting and epigastric burning pain for past 3 months, pt has been seen her multiple times for complaint, pt has not followed up or scheduled an appointment with GI as instructed. Pt also noted that she has infrequent BM at baseline with chronic constipation however she has not had a "large BM" regardless of magnesium citrate and fleet enema use. She states she had small BM following fleet enema. Pt states she continues to have vomiting and bloating sensation thats been on and off for he past 3+ months. pt denies fever, chills, night sweats, back pain, lower abdominal pain, chest pain, shortness of breath, pain with deep inspiration, diarrhea, opstipation, hematemsis, melena, hematochezia. Upon arrival pt appears comfortable. NO signs of acute distress. VS within acceptable limits. Afebrile. - Related Data Home Medications Medication Instructions Recorded Confirmed QUEtiapine [SEROquel] 50 mg PO HS 05/07/18 05/13/18 Omeprazole [PriLOSEC] 20 mg PO DAILY 05/13/18 05/13/18 Allergies Allergy/AdvReac Type Severity Reaction Status Date / Time No Known Allergies Allergy Verified 05/13/18 17:48 Review of Systems ROS Statement: Those systems with pertinent positive or pertinent negative responses have been documented in the HPI. ROS Other: All systems not noted in ROS Statement are negative. Constitutional: Denies: fever, chills ENT: Denies: ear pain, throat pain Respiratory: Denies: cough, dyspnea, wheezes, hemoptysis, stridor Cardiovascular: Denies: chest pain, palpitations Endocrine: Denies: fatigue Gastrointestinal: Reports: abdominal pain, nausea, vomiting, constipation. Denies: diarrhea, hematemesis, melena, hematochezia Genitourinary: Denies: urgency, dysuria, frequency, hematuria Musculoskeletal: Denies: back pain Past Medical History Past Medical History: Cancer, CVA/TIA, Osteoarthritis (OA), Rheumatoid Arthritis (RA), Seizure Disorder, Skin Disorder, Thyroid Disorder Additional Past Medical History / Comment(s): Cancer bilateral breasts with mastectomies/chemotherapy, 2006 CVA with slight dysphasia and mild R sided arm/ leg weakness, morganii syndrome, cellulitis R cheek, dental and chin abscess, last seizure 2009, hiatal hernia, bilateral cataracts, osteoporosis, UTI, hypothyroid. History of Any Multi-Drug Resistant Organisms: None Reported Past Surgical History: Adenoidectomy, Breast Surgery, Tonsillectomy, Tubal Ligation Additional Past Surgical History / Comment(s): Surgery for prolapsed rectum, colonoscopy, bilateral breast mastectomy, benign skin bx. Past Anesthesia/Blood Transfusion Reactions: No Reported Reaction Additional Past Anesthesia/Blood Transfusion Reaction / Comment(s): CLAUSTERPHOBIA Past Psychological History: Anxiety, Depression Smoking Status: Former smoker Past Alcohol Use History: None Reported Past Drug Use History: None Reported - Past Family History Father Family Medical History: Cancer, Rheumatoid Arthritis (RA) Additional Family Medical History / Comment(s): SKIN CANCER, HEART PROBLEMS (PT NOT SURE WHAT TYPE) Mother Family Medical History: Dementia, Deep Vein Thrombosis (DVT), Osteoarthritis (OA ) General Exam - General Exam Comments Initial Comments: General: The patient is awake and alert, in no distress, and does not appear acutely ill. Eye: Pupils are equal, round and reactive to light, extra-ocular movements are intact. No nystagmus. There is normal conjunctiva bilaterally. No signs of icterus. Ears, nose, mouth and throat: There are moist mucous membranes and no oral lesions. Neck: The neck is supple, there is no tenderness or JVD. Cardiovascular: There is a regular rate and rhythm. No murmur, rub or gallop is appreciated. Respiratory: Lungs are clear to auscultation, respirations are non-labored, breath sounds are equal. No wheezes, stridor, rales, or rhonchi. Gastrointestinal: No noted diaphoresis, jaundice, pallor, protecting postures or squirming. Symmetrical pigmentation of abdomen without signs of inflammation, or striae. Umbilicus mildline, inverted without swelling. No dilated veins. Mild abdominal distention. No visible masses. No peristalsis, aortic pulsations, or ventral hernia. Bowel sounds audible in all 4 quadrants, unremarkable. No friction rubs or venous hums. No epigastic, hepatic or abdominal bruits. No pain to light or deep palpation of abdomen. Pt admitted to mild discomfort with palpation of RUQ. No rigidity or guarding. Liver edge, not palpable. Spleen edge, right and left kidney not palpable. Superior bladder margin non-tender. Special Testing: Negative shifting dullness, fluid wave, [place], Rovsing, McBurney, Viel[place], cutaneous hyperesthesia. Iliopsoas and obturator tests negative bilaterally. Negative Heel Jar test/jena sign. No CVA tenderness. Digital rectal exam deferred. Negative luis turners or cullens sign Musculoskeletal: Normal ROM, no tenderness. Strength 5/5. Sensation intact. Pulses equal bilaterally 2+. Neurological: A&O x 3. CN II-XII intact, There are no obvious motor or sensory deficits. Coordination appears grossly intact. Speech is normal. Skin: Skin is warm and dry and no rashes or lesions are noted. Psychiatric: Cooperative, appropriate mood & affect, normal judgment. Limitations: no limitations Course Vital Signs 05/13/18 05/13/18 05/13/18 17:29 18:06 18:07 Temperature 97.7 F Pulse Rate 66 78 Respiratory 18 18 Rate Blood Pressure 112/74 123/69 123/69 O2 Sat by Pulse 88 L 98 100 Oximetry 05/13/18 05/13/18 05/13/18 19:00 20:00 21:00 Temperature Pulse Rate Respiratory Rate Blood Pressure 121/61 111/64 132/87 O2 Sat by Pulse 98 98 98 Oximetry 05/13/18 21:44 Temperature Pulse Rate 76 Respiratory 16 Rate Blood Pressure 122/65 O2 Sat by Pulse 97 Oximetry Medical Decision Making - Medical Decision Making Laboratory studies unremarkable. CT performed 05/07 pt denies abdominal pain to deep palpation, admit to "discomfort" to palpation of the RUQ, (-) [place]. US GB (-). Lipase WNL. Pt afebrile. EKG revealed slightly increased T wave inversion in leads V1-V3 in comparison with previous EKG, trop (-). Pt placed on consumer loan manager. Pt will admitted for T-wave inversion, as well as constipation and epigastric pain. Pt admitted to Dr. Perez with cardiology and GI consult after speaking with attending provider Dr. Abdi who agreed with impression and plan. He spoke with admitting providers, no further orders at this time. - Lab Data Result diagrams: 05/13/18 18:40 05/13/18 18:40 Lab Results 05/13/18 05/13/18 05/13/18 Range/Units 18:40 18:40 18:40 WBC 6.7 (3.8-10.6) k/uL RBC 4.74 (3.80-5.40) m/uL Hgb 13.6 (11.4-16.0) gm/dL Hct 43.8 (34.0-46.0) % MCV 92.4 (80.0-100.0) fL MCH 28.6 (25.0-35.0) pg MCHC 31.0 (31.0-37.0) g/dL RDW 13.2 (11.5-15.5) % Plt Count 329 (150-450) k/uL Neutrophils % 63 % Lymphocytes % 25 % Monocytes % 8 % Eosinophils % 2 % Basophils % 1 % Neutrophils # 4.2 (1.3-7.7) k/uL Lymphocytes # 1.7 (1.0-4.8) k/uL Monocytes # 0.5 (0-1.0) k/uL Eosinophils # 0.1 (0-0.7) k/uL Basophils # 0.0 (0-0.2) k/uL Sodium 145 (137-145) mmol/L Potassium 4.3 (3.5-5.1) mmol/L Chloride 104 (98-107) mmol/L Carbon Dioxide 35 H (22-30) mmol/L Anion Gap 6 mmol/L BUN 27 H (7-17) mg/dL Creatinine 1.12 H (0.52-1.04) mg/dL Est GFR (CKD-EPI)AfAm 58 (>60 ml/min/1.73 sqM) Est GFR (CKD-EPI)NonAf 50 (>60 ml/min/1.73 sqM) Glucose 139 H (74-99) mg/dL Calcium 9.7 (8.4-10.2) mg/dL Total Bilirubin 0.3 (0.2-1.3) mg/dL AST 17 (14-36) U/L ALT 15 (9-52) U/L Alkaline Phosphatase 57 (38-126) U/L Troponin I <0.012 (0.000-0.034) ng/mL Total Protein 6.9 (6.3-8.2) g/dL Albumin 3.9 (3.5-5.0) g/dL Amylase 70 (30-110) U/L Lipase 109 (23-300) U/L - EKG Data EKG Comments: Ventricular rate 83 bpm, MN 120 ms, QRS duration 124 ms, QT/QTC 386/453 ms. Appears to be sinus rhythm. Increased T-wave inversion in leads V1 through V3 in comparison with previous EKG. Right bundle branch block is redemonstrated. No ST elevation or depression. EKG interpreted by myself and Dr. Abdi. Disposition Clinical Impression: T wave inversion in EKG, Epigastric pain, Nausea & vomiting Disposition: ADMITTED IP TO THIS HOSP Condition: Stable Is patient prescribed a controlled substance at d/c from ED?: No Time of Disposition: 21:20 Decision to Admit Reason: Admit from EC Decision Date: 05/13/18 Decision Time: 21:20
[2018-05-13] MEDS ORDERED: ONDANSETRON 4 MG/2 ML VIAL IVP PRN (21:33)
[2018-05-13] MEDS ORDERED: NALOXONE 0.4 MG/ML 1 ML VIAL IV PRN (21:33)
[2018-05-13] MEDS: SODIUM CHLORIDE 0.9% 1,000 ML IV SCH (21:41)
[2018-05-13 23:03] VITALS: BMI 18.2
[2018-05-13] MEDS: FAMOTIDINE 20 MG TAB PO SCH (23:24)
[2018-05-13] MEDS: QUEtiapine 50 MG TAB PO SCH (23:41)
--- NOTE | 2018-05-14 08:31 | P.CRDCN ---
History of Present Illness History of present illness: This is a pleasant 67-year-old female past medical history significant for stroke in 2010, rest cancer status post mastectomy, seizure disorder and arthritis. She denies history of coronary artery disease, hypertension and dyslipidemia. She has never seen a deli associate for any reason. We have been asked to see her in consultation for an abnormal EKG. She states for the previous 5 days she has been struggling with constipation. She states 3 days ago she took a fleets enema and attempts to have a bowel movement but was unsuccessful. She then started feeling nauseated. On Sunday afternoon she started vomiting. She vomited a couple of different times throughout the day he complained of a nonspecific abdominal tenderness. The pain in the abdomen was in the lower pelvic region. Yesterday she got magnesium citrate and drank trying to move her bowels again and again was unsuccessful. After drinking the magnesium citrate she started vomiting. After vomiting she started feeling a burning in the epigastric region with a burning sensation radiating up the chest into the throat. Due to the ongoing constipation as well as her pain in her stomach she decided to come to the hospital for evaluation. She denies symptoms of shortness of breath, precordial chest pain, pain in the back, shoulders, arm or jaw or palpitations. EKG reveals right bundle branch block pattern. Which is consistent with previous EKGs obtained. Abdominal x-rays negative for an acute process with normal fecal pattern noted. Ultrasound of the abdomen is negative for gallstones or dilated ducts. Laboratory data reviewed, WBC 6.7, hemoglobin 13.6, platelets 329, sodium 145, potassium 4.3, creatinine 1.12, cardiac enzymes negative 2. She takes no daily cardiac medications. At the time of my exam: CONSTITUTIONAL: Denies fever. Denies chills. EYES: Denies blurred vision. Denies vision changes. Denies eye pain. EARS, NOSE, MOUTH & THROAT: Denies headache. Denies sore throat. Denies ear pain. CARDIOVASCULAR: Denies chest pain. Denies shortness of breath. Denies orthopnea. Denies PND. Denies palpitations. RESPIRATORY: Denies cough. GASTROINTESTINAL: Denies abdominal pain. Denies diarrhea. Complains of constipation and nausea. Denies vomiting. MUSCULOSKELETAL: Denies myalgias. INTEGUMENTARY: Denies pruitis. Denies rash. NEUROLOGIC: Denies numbness. Denies tingling. Denies weakness. PSYCHIATRIC: Denies anxiety. Denies depression. ENDOCRINE: Denies fatigue. Denies weight change. Denies polydipsia. Denies polyurina. GENITOURINARY: Denies burning, hematuria or urgency with micturation. HEMATOLOGIC: Denies history of anemia. Denies bleeding. Blood pressure 101/50 566 afebrile maintaining oxygen saturation on room air GENERAL: This is a 67-year-old female in no apparent distress at the time of my examination. HEENT: Head is atraumatic, normocephalic. Pupils are equal, round. Sclerae anicteric. Conjunctivae are clear. Mucous membranes of the mouth are moist. Neck is supple. There is no jugular venous distention. No carotid bruit is heard. LUNGS: Clear to auscultation no wheezes, rales or rhonchi. No chest wall tenderness is noted on palpation or with deep breathing. HEART: Regular rate and rhythm without murmurs, rubs or gallops. S1 and S2 heard. ABDOMEN: Soft, nontender. Bowel sounds are heard. No organomegaly noted. EXTREMITIES: No evidence of peripheral edema and no calf tenderness noted. VASCULAR: Radial and dorsalis pedis pulses palpated, no evidence of clubbing. NEUROLOGIC: Patient is awake, alert and oriented x3. ASSESSMENT Constipation, abdominal pain and nausea with intermittent episodes of epigastric burning. An acute coronary event is ruled out. Right bundle branch block pattern, chronic History of CVA 2009 PLAN EKG has been reviewed and appears to be chronic pattern for this patient with no acute ST-T wave abnormalities noted. Symptoms are not suggestive of angina with no EKG changes and negative cardiac enzymes. Ongoing medical management of constipation as well as gastrointestinal symptoms. Thank you kindly for this consultation. Nurse Practitioner note has been reviewed, I agree with a documented findings and plan of care. Patient was seen and examined. 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 History of Any Multi-Drug Resistant Organisms: None Reported Past Surgical History: Adenoidectomy, Breast Surgery, Tonsillectomy, Tubal Ligation Additional Past Surgical History / Comment(s): Surgery for prolapsed rectum, colonoscopy, bilateral breast mastectomy, benign skin bx. Past Anesthesia/Blood Transfusion Reactions: No Reported Reaction Additional Past Anesthesia/Blood Transfusion Reaction / Comment(s): CLAUSTERPHOBIA Past Psychological History: Anxiety, Depression Smoking Status: Former smoker Past Alcohol Use History: None Reported Past Drug Use History: None Reported - Past Family History Father Family Medical History: Cancer, Rheumatoid Arthritis (RA) Additional Family Medical History / Comment(s): SKIN CANCER, HEART PROBLEMS (PT NOT SURE WHAT TYPE) Mother Family Medical History: Dementia, Deep Vein Thrombosis (DVT), Osteoarthritis (OA ) Medications and Allergies Home Medications Medication Instructions Recorded Confirmed Type QUEtiapine [SEROquel] 50 mg PO HS 05/07/18 05/13/18 History Omeprazole [PriLOSEC] 20 mg PO DAILY 05/13/18 05/13/18 History Allergies Allergy/AdvReac Type Severity Reaction Status Date / Time No Known Allergies Allergy Verified 05/13/18 17:48 Physical Exam Vitals: Vital Signs Temp Pulse Pulse Resp BP BP Pulse Ox 05/14/18 07:21 97.5 F L 66 18 101/55 95 05/14/18 04:00 16 05/14/18 03:26 98.1 F 67 16 122/72 98 05/13/18 23:10 16 05/13/18 23:05 98.3 F 67 16 116/61 98 05/13/18 21:44 76 16 122/65 97 05/13/18 21:00 132/87 98 05/13/18 20:00 111/64 98 05/13/18 19:00 121/61 98 05/13/18 18:07 123/69 100 05/13/18 18:06 78 18 123/69 98 05/13/18 17:29 97.7 F 66 18 112/74 88 L Intake and Output 05/13/18 05/14/18 05/14/18 22:59 06:59 14:59 Other: Voiding Method Toilet # Voids 2 Weight 48.2 kg Results 05/13/18 18:40 05/13/18 18:40 Cardiac Enzymes 05/13/18 05/13/18 05/14/18 Range/Units 18:40 18:40 00:46 AST 17 (14-36) U/L Troponin I <0.012 <0.012 (0.000-0.034) ng/mL CBC 05/13/18 Range/Units 18:40 WBC 6.7 (3.8-10.6) k/uL RBC 4.74 (3.80-5.40) m/uL Hgb 13.6 (11.4-16.0) gm/dL Hct 43.8 (34.0-46.0) % Plt Count 329 (150-450) k/uL Comprehensive Metabolic Panel 05/13/18 Range/Units 18:40 Sodium 145 (137-145) mmol/L Potassium 4.3 (3.5-5.1) mmol/L Chloride 104 (98-107) mmol/L Carbon Dioxide 35 H (22-30) mmol/L BUN 27 H (7-17) mg/dL Creatinine 1.12 H (0.52-1.04) mg/dL Glucose 139 H (74-99) mg/dL Calcium 9.7 (8.4-10.2) mg/dL AST 17 (14-36) U/L ALT 15 (9-52) U/L Alkaline Phosphatase 57 (38-126) U/L Total Protein 6.9 (6.3-8.2) g/dL Albumin 3.9 (3.5-5.0) g/dL Current Medications Generic Name Dose Route Start Last Admin Trade Name Freq PRN Reason Stop Dose Admin Famotidine 20 mg 05/13/18 23:08 05/13/18 23:24 Pepcid PO 20 mg BID YASSINE Administration Sodium Chloride 1,000 mls @ 50 mls/hr 05/13/18 21:45 05/13/18 21:41 Saline 0.9% IV 50 mls/hr .Q20H YASSINE Administration Naloxone HCl 0.2 mg 05/13/18 21:33 Narcan IV Q2M PRN Opioid Reversal Ondansetron HCl 4 mg 05/13/18 21:33 Zofran IVP Q8HR PRN Nausea And Vomiting Pantoprazole Sodium 40 mg 05/14/18 07:30 Protonix PO DAILY@0730 YASSINE Quetiapine Fumarate 50 mg 05/13/18 23:30 05/13/18 23:41 Seroquel PO 50 mg HS YASSINE Administration Intake and Output 05/13/18 05/14/18 05/14/18 22:59 06:59 14:59 Other: Voiding Method Toilet # Voids 2 Weight 48.2 kg 05/13/18 18:40 05/13/18 18:40
[2018-05-14] MEDS ORDERED: FAMOTIDINE 20 MG TAB PO SCH (09:00)
[2018-05-14] MEDS: PANTOPRAZOLE 40 MG TABLET PO SCH (09:32)
[2018-05-14] MEDS: FAMOTIDINE 20 MG TAB PO SCH (10:01)
[2018-05-14] MEDS: SODIUM CHLORIDE 0.9% 1,000 ML IV SCH (10:02)
[2018-05-14] MEDS ORDERED: ACETAMINOPHEN TAB 325 MG TAB PO PRN (10:26)
--- NOTE | 2018-05-14 15:04 | P.HPIM ---
History of Present Illness H&P Date: 05/14/18 Chief Complaint: Stomach problems HISTORY AND PHYSICAL AND DISCHARGE SUMMARY: This is a 66-year-old female patient of Dr. Ovalle with past medical history of rheumatoid arthritis, seizure disorder, hypothyroidism, breast cancer status post mastectomy in chemotherapy, CVA in 2006, CVA. Patient gives history of having stomach problems and had taken citrate of magnesium and then vomited at home. Patient states that every time she eats she gets gas and gastric reflux and she has a known history of hiatal hernia. She also complains of chronic constipation. She called her physician's office and was told to come in to the ER for evaluation. It is noted that patient has had 5 ER visits since February for abdominal complaints. Most recent CAT scan of the abdomen and pelvis without contrast was done on May 07 that revealed nonspecific enteritis. No evidence of obstructive change. No evidence of free air or abscess. Small gallstones. On May 13, abdominal ultrasound showed no gallstones or dilated ducts. No focal liver defects. Mild right renal atrophy. There is progression of renal atrophy compared to old exam. Patient presented to the ER with complaints of emesis after taking the magnesium citrate. She had a small bowel movement after a Fleet enema. She apparently had some vomiting and bloating sensation that a been going on for 3 months. No fever or chills. Patient was evaluated in the ER. KUB was nonspecific abdomen. BUN 27 creatinine 1.12, blood sugar 139, liver function tests all within normal limits. White count and hemoglobin normal. Amylase and lipase were normal, troponins negative 3 draws. Patient was placed in the observation unit and consults placed with cardiology as there was concern for T- wave inversion and GI for epigastric discomfort nausea and vomiting. EKG revealed right bundle branch block and was unchanged from previous EKGs. Cardiology evaluated. Patient denies any complaints of chest pain or shortness of breath. She has had a normal echocardiogram done in September and stress test done at that time. The patient also has a consult in place with GI that is pending. 05/15: Patient was seen by GI this morning and underwent EGD found to have mild antral gastritis, small hiatal hernia but no evidence of esophagitis or Burnett' s esophagus. Biopsies were obtained and recommended Protonix with follow-up in the office in 3-4 weeks. Patient will be discharged home today in stable condition. Review of Systems All systems: negative Constitutional: Denies chills, Denies fatigue, Denies fever, Denies poor appetite, Denies weakness, Denies weight loss Eyes: denies blurred vision, denies pain Ears, nose, mouth and throat: Denies headache, Denies mouth pain, Denies sore throat, Denies vertigo Cardiovascular: Denies chest pain, Denies decreased exercise tolerance, Denies dyspnea on exertion, Denies edema, Denies irregular heart beat, Denies leg edema , Denies lightheadedness, Denies shortness of breath, Denies syncope Respiratory: Denies cough, Denies cough with sputum, Denies dyspnea, Denies excessive sputum, Denies hemoptysis, Denies home oxygen, Denies snoring, Denies wheezing Gastrointestinal: Reports bloating, Reports constipation, Reports nausea, Reports vomiting, Denies abdominal pain, Denies diarrhea, Denies loss of appetite, Denies melena Genitourinary: Denies dysuria, Denies hematuria Musculoskeletal: Denies frequent falls, Denies myalgias Integumentary: Denies pruritus, Denies rash Neurological: Denies change in mentation, Denies change in speech, Denies numbness, Denies seizures, Denies weakness Psychiatric: Denies anxiety, Denies depression Endocrine: Denies fatigue, Denies weight change Past Medical History Past Medical History: Cancer, CVA/TIA, Osteoarthritis (OA), Rheumatoid Arthritis (RA), Seizure Disorder, Skin Disorder, Thyroid Disorder Additional Past Medical History / Comment(s): Cancer bilateral breasts with mastectomies/chemotherapy, 2006 CVA with slight dysphasia and mild R sided arm/ leg weakness, morganii syndrome, cellulitis R cheek, dental and chin abscess, last seizure 2009, hiatal hernia, bilateral cataracts, osteoporosis, UTI, hypothyroid. History of Any Multi-Drug Resistant Organisms: None Reported Past Surgical History: Adenoidectomy, Breast Surgery, Tonsillectomy, Tubal Ligation Additional Past Surgical History / Comment(s): Surgery for prolapsed rectum, colonoscopy, bilateral breast mastectomy, benign skin bx. Past Anesthesia/Blood Transfusion Reactions: No Reported Reaction Additional Past Anesthesia/Blood Transfusion Reaction / Comment(s): CLAUSTERPHOBIA Past Psychological History: Anxiety, Depression Smoking Status: Former smoker Past Alcohol Use History: None Reported Additional Past Alcohol Use History / Comment(s): Patient was a smoker of a half pack per day for 20 years ago 22 years ago. Past Drug Use History: None Reported - Past Family History Father Family Medical History: Cancer, Rheumatoid Arthritis (RA) Additional Family Medical History / Comment(s): SKIN CANCER, HEART PROBLEMS (PT NOT SURE WHAT TYPE) Mother Family Medical History: Dementia, Deep Vein Thrombosis (DVT), Osteoarthritis (OA ) Medications and Allergies Home Medications Medication Instructions Recorded Confirmed Type QUEtiapine [SEROquel] 50 mg PO HS 05/07/18 05/13/18 History Omeprazole [PriLOSEC] 20 mg PO DAILY 05/13/18 05/13/18 History Pantoprazole Sodium [Protonix] 40 mg PO DAILY #30 tablet. 05/15/18 Rx Allergies Allergy/AdvReac Type Severity Reaction Status Date / Time No Known Allergies Allergy Verified 05/13/18 17:48 Physical Exam Vitals: Vital Signs Temp Pulse Pulse Resp BP BP Pulse Ox 05/14/18 07:21 97.5 F L 66 18 101/55 95 05/14/18 04:00 16 05/14/18 03:26 98.1 F 67 16 122/72 98 05/13/18 23:10 16 05/13/18 23:05 98.3 F 67 16 116/61 98 05/13/18 21:44 76 16 122/65 97 05/13/18 21:00 132/87 98 05/13/18 20:00 111/64 98 05/13/18 19:00 121/61 98 05/13/18 18:07 123/69 100 05/13/18 18:06 78 18 123/69 98 05/13/18 17:29 97.7 F 66 18 112/74 88 L Intake and Output 05/13/18 05/14/18 05/14/18 22:59 06:59 14:59 Other: Voiding Method Toilet Toilet # Voids 2 Weight 48.2 kg Gen: This is a thin 67-year-old female. She is sitting up in bed and appears to be comfortable and in no acute distress. HEENT: Head is atraumatic, normocephalic. Pupils equal, round. Sclerae is anicteric. Oral mucous membranes are moist. NECK: Supple. No JVD. No lymphadenopathy. No thyromegaly. LUNGS: Clear to auscultation. No wheezes or rhonchi. No intercostal retractions. HEART: Regular rate and rhythm. No murmur. ABDOMEN: Soft. Bowel sounds are present. No masses. No tenderness. EXTREMITIES: No pedal edema. No calf tenderness. NEUROLOGICAL: Patient is awake, alert and oriented x3. Cranial nerves 2 through 12 are grossly intact. Results CBC & Chem 7: 05/13/18 18:40 05/13/18 18:40 Labs: Abnormal Lab Results - Last 24 Hours (Table) 05/13/18 Range/Units 18:40 Carbon Dioxide 35 H (22-30) mmol/L BUN 27 H (7-17) mg/dL Creatinine 1.12 H (0.52-1.04) mg/dL Glucose 139 H (74-99) mg/dL Thrombosis Risk Factor Assmnt - DVT/VTE Prophylaxis DVT/VTE Prophylaxis: Pharmacologic Prophylaxis ordered - Choose All That Apply Each Risk Factor Represents 2 Points: Age 61-74 years, Malignancy Thrombosis Risk Factor Assessment Total Risk Factor Score: 4 Thrombosis Risk Factor Assessment Level: Moderate Risk Assessment and Plan Plan: 1. Abdominal pain, nausea with episodes of gastric reflux and vomiting, constipation. GI consult, remain nothing by mouth. 2. Right bundle branch block on EKG which is chronic. Cardiology consult appreciated. Patient denies having any chest pain or exertional dyspnea. 3. Recurrent depression. Continue Seroquel. 4. Hiatal hernia and gastric reflux. Continue omeprazole. Patient will be placed on the observation unit. Discharge plan: Return home Impression and plan of care have been directed as dictated by the signing physician. Yoselyn Escobar nurse practitioner acting as scribe for signing physician.
[2018-05-14] MEDS: MAG HYDROX/AL HYDROX/SIMETH 30 ML CUP PO PRN ×2 (16:46→20:00)
[2018-05-14] MEDS: QUEtiapine 50 MG TAB PO SCH (20:00)
[2018-05-14] MEDS ORDERED: DOCUSATE 100 MG CAP PO PRN (20:58)
[2018-05-14 23:58] VITALS: TEMP 97.9
[2018-05-15 07:31] VITALS: RESP 18
[2018-05-15] MEDS: SODIUM CHLORIDE 0.9% 1,000 ML IV SCH (07:37)
[2018-05-15] MEDS: PANTOPRAZOLE 40 MG TABLET PO SCH (07:39)
--- NOTE | 2018-05-15 09:14 | P.CONS ---
History of Present Illness - Reason for Consult Consult date: 05/15/18 abdominal pain Requesting physician: Devin Perez - Chief Complaint Abdominal epigastric pain - History of Present Illness 67-year-old female patient of Dr. Ovalle past medical history depression, RA , seizure disorder, breast cancer mastectomy chemo, CVA admitted with persistent epigastric abdominal pain intermittent nausea vomiting with constipation and without diarrhea. Denies fever chills hematemesis hematochezia melena. Patient states her symptoms have been ongoing for about 2 months prior to that no history of this type of pain. Describes as a burning sensation in the midepigastric region radiating up to her esophagus reflux type symptoms. She has been on Protonix daily for a month without improvement. EGD colonoscopy performed by Dr. Orellana December 2016 for evaluation of abdominal pain loss of appetite and dysphagia reported no evidence of peptic ulcer disease colonoscopy within normal limits no evidence of diverticular disease polyps masses ulcers or mucosal abnormality. She has had 2 CTs of the abdomen since April 27 both reported nonspecific enteritis. Ultrasound reported gallstones without biliary duct abnormality. LFTs pancreatic enzymes within normal limits. Troponin less than 0.01 to 3. White count 6.7. Hemoglobin 13.6. Platelet 329. No NSAIDs excessive aspirin or alcohol usage. Review of Systems Constitutional: Denies fever, chills, sweats, weight gain, or loss. HEENT: Negative for migraines, blurred vision or loss, earaches, drainage, tinnitus, oral mucosal lesions, dysphagia, or odynophagia. CARDIAC: Negative for chest pain, arrhythmias, or palpitation. RESPIRATORY: Negative for shortness of breath, hemoptysis, cough, or sputum production. GI: See HPI for pertinent findings. : Negative for hematuria, urgency, frequency, polyuria, or dysuria. GYNc: Denies possibility of . Negative vaginal discharge. MUSCULOSKELETAL: Negative for muscle aches, swelling, arthritis, and arthralgias. NEUROLOGIC: Negative for stroke or TIA. ENDOCRINE: Negative for thyroid problems. SKIN: Negative for rash or itching. PSYCHIATRIC: Negative history for depression and anxiety Past Medical History Past Medical History: Cancer, CVA/TIA, Osteoarthritis (OA), Rheumatoid Arthritis (RA), Seizure Disorder, Skin Disorder, Thyroid Disorder Additional Past Medical History / Comment(s): Cancer bilateral breasts with mastectomies/chemotherapy, 2006 CVA with slight dysphasia and mild R sided arm/ leg weakness, morganii syndrome, cellulitis R cheek, dental and chin abscess, last seizure 2009, hiatal hernia, bilateral cataracts, osteoporosis, UTI, hypothyroid. History of Any Multi-Drug Resistant Organisms: None Reported Past Surgical History: Adenoidectomy, Breast Surgery, Tonsillectomy, Tubal Ligation Additional Past Surgical History / Comment(s): Surgery for prolapsed rectum, colonoscopy, bilateral breast mastectomy, benign skin bx. Past Anesthesia/Blood Transfusion Reactions: No Reported Reaction Additional Past Anesthesia/Blood Transfusion Reaction / Comm: CLAUSTERPHOBIA Past Psychological History: Anxiety, Depression Smoking Status: Former smoker Past Alcohol Use History: None Reported Additional Past Alcohol Use History / Comment(s): Patient was a smoker of a half pack per day for 20 years ago 22 years ago. Past Drug Use History: None Reported - Past Family History Father Family Medical History: Cancer, Rheumatoid Arthritis (RA) Additional Family Medical History / Comment(s): SKIN CANCER, HEART PROBLEMS (PT NOT SURE WHAT TYPE) Mother Family Medical History: Dementia, Deep Vein Thrombosis (DVT), Osteoarthritis (OA ) Medications and Allergies Home Medications Medication Instructions Recorded Confirmed Type QUEtiapine [SEROquel] 50 mg PO HS 05/07/18 05/13/18 History Omeprazole [PriLOSEC] 20 mg PO DAILY 05/13/18 05/13/18 History Allergies Allergy/AdvReac Type Severity Reaction Status Date / Time No Known Allergies Allergy Verified 05/13/18 17:48 Physical Exam Vitals: Vital Signs Temp Pulse Resp BP Pulse Ox 05/15/18 07:05 97.9 F 82 18 122/78 98 05/15/18 03:49 16 05/15/18 00:00 16 05/14/18 23:57 97.9 F 57 L 16 121/62 98 05/14/18 20:00 16 05/14/18 19:21 98.0 F 60 16 139/72 98 05/14/18 15:43 98.0 F 61 18 126/68 98 Intake and Output 05/14/18 05/15/18 05/15/18 22:59 06:59 14:59 Intake Total 318 Balance 318 Intake: Oral 318 Other: Voiding Method Toilet Toilet General appearance: The patient is alert, oriented, in no acute distress. HET: Head is normocephalic and atraumatic. Pupils are equal and reactive. Oropharynx is clear without lesions. Neck: Supple without lymphadenopathy. Trachea midline. Heart: S1 S2. Regular rate and rhythm. Lungs: No crackles or wheezes are heard. Abdomen: Soft, mild midepigastric tenderness, nondistended with bowel sounds. No peritoneal signs. No palpable organomegaly or masses. Extremities: Normal skin color and turgor. No cyanosis, rash, ulceration, clubbing, or edema. Radial and pedal pulses are 2/4 bilaterally. Neurological: No focal deficits. Strength and sensation are grossly intact. Results CBC & Chem 7: 05/13/18 18:40 05/13/18 18:40 CT scan - abdomen: report reviewed (Dr. Crowe) Assessment and Plan (1) Epigastric pain Narrative/Plan: 67-year-old female admitted with a 2 month history of epigastric abdominal pain reflux dyspepsia unrelieved with PPI therapy suspect GERD underlying peptic ulcer disease cannot be excluded. EGD colonoscopy December 2016 reported no evidence of peptic ulcer disease or colonic abnormalities. Current Visit: Yes Status: Acute Code(s): R10.13 - EPIGASTRIC PAIN SNOMED Code(s): 80124624 Plan: 1. Nothing by mouth. EGD. Protonix 40 mg twice daily. The treating engineer has discussed the risks, benefits and alternative therapies for the above-mentioned procedure and for both sedation/analgesia as well as necessary blood product administration, if indicated, as they pertain to this patient. The patient has indicated understanding and acceptance of the risks and procedures discussed. Thank you for this kind referral and the opportunity to participate in the care of your patient. This consultation was discussed with Dr. Crowe. The impression and plan of care have been directed as dictated.
[2018-05-15] MEDS ORDERED: PROPOFOL 10 MG/ML 20 ML VIAL IV ONE (12:02)
[2018-05-15] MEDS ORDERED: IV FLUID CONTINUATION 1,000 ML IV ONE (12:03)
--- NOTE | 2018-05-15 12:17 | P.PCN ---
Date of Procedure: 05/15/18 Procedure(s) Performed: BRIEF HISTORY: Patient is a 67-year-old, pleasant, 8 female, scheduled for an upper endoscopy as a part of evaluation of long-standing history of GERD. She has been having severe heartburn for the last 2 months duration. His being on Prevacid 20 mg daily with no improvement in symptoms. She was admitted to the hospital for further evaluation.. PROCEDURE PERFORMED: Esophagogastroduodenoscopy With biopsy PREOPERATIVE DIAGNOSIS: GERD/severe heartburn IV sedation per anesthesia. PROCEDURE: After informed consent was obtained, the patient was brought into the endoscopy unit. IV sedation was administered by Anesthesia under continuous monitoring. Initially the Olympus GIF-140 video endoscope was inserted into the mouth. Esophagus intubated without any difficulty. It was gradually advanced into the stomach and duodenum and carefully examined. The bulb and the second part of the duodenum appeared normal. The scope at this time was withdrawn to the stomach, adequately insufflated with air, and upon careful examination, mucosa of the antrum, had patchy areas of erythema and biopsies were done from this area. The body, cardia and the fundus appeared normal. The scope was then withdrawn into the esophagus. Small hiatal hernia noted. The GE junction was located at 39 cm from the incisors. The esophagus appeared normal. Biopsies were done from the distal esophagus. There were no erosions or ulcerations seen and the patient tolerated the procedure well. IMPRESSION: 1. Mild antral gastritis 2. Small hiatal hernia but no evidence of esophagitis or Burnett's esophagus RECOMMENDATIONS: The findings of this examination were discussed with the patient as well as her family. She was advised to follow with the biopsy results. She will continue with Protonix 40 mg twice daily half hour before breakfast and dinnertime and follow antireflux measures. she can follow up in office in 3-4 weeks.
[2018-05-15 12:53] VITALS: BP 103/51; PULSE 71
[2018-05-15] MEDS ORDERED: PANTOPRAZOLE 40 MG TABLET PO SCH (21:00)
== END 2018-05-15 13:57 | disposition home or self-care (01) ==
LOC: EC 17:22 → 1SOBS 22:15
PROVIDERS: ADMIT Internal Medicine Geriatric Medicine; ATTEND Internal Medicine Geriatric Medicine
DX: K29.60 Other gastritis without bleeding (principal); K59.09 Other constipation; R11.2 Nausea with vomiting, unspecified; K20.8 Other esophagitis; K44.9 Diaphragmatic hernia without obstruction or gangrene; I69.321 Dysphasia following cerebral infarction; K21.9 Gastro-esophageal reflux disease without esophagitis; I69.351 Hemiplegia and hemiparesis following cerebral infarction affecting right dominant side; I45.10 Unspecified right bundle-branch block; F33.9 Major depressive disorder, recurrent, unspecified; F41.9 Anxiety disorder, unspecified; M81.0 Age-related osteoporosis without current pathological fracture; G40.909 Epilepsy, unspecified, not intractable, without status epilepticus; Z92.21 Personal history of antineoplastic chemotherapy; Z85.3 Personal history of malignant neoplasm of breast; Z87.440 Personal history of urinary (tract) infections; Z87.891 Personal history of nicotine dependence; Z80.8 Family history of malignant neoplasm of other organs or systems; Z79.899 Other long term (current) drug therapy
CPT/HCPCS: 96374; 96375; 99285; 36415; 93005; 88305; 80053; 82150; 83690; 84484 ×2; 85025; 74018; 76705; 43239; G0378 ×3; J2405; J2704; C9113

== ENCOUNTER → 2018-06-07 | Outpatient (CLI) | payer MEDICARE | END | disposition home or self-care (01) | LOC: RADNMMAIN 13:01 | PROVIDERS: ATTEND Family Medicine | DX: Z53.9 Procedure and treatment not carried out, unspecified reason (principal) ==

== ENCOUNTER → 2018-07-15 | Outpatient (CLI) | payer MEDICARE ==
--- NOTE | 2018-07-15 16:04 | NM ---
Nuclear medicine hepatobiliary scan. HISTORY: Pain. DOSAGE: The patient received 8 ounces and sure plus and 4.9 mCi of Technetium 99m Choletec. FINDINGS: There is normal hepatic extraction. The gallbladder is seen by 40 minutes. There is bilia ry to bowel clearance by 25 minutes. Ejection fraction is 68%. IMPRESSION: 1. Normal hepatobiliary exam
== END ==
LOC: RADNMMAIN 12:45
PROVIDERS: ATTEND Family Medicine
DX: K21.9 Gastro-esophageal reflux disease without esophagitis (principal)
CPT/HCPCS: 78226; A9537

== ENCOUNTER 2018-10-25 09:51 | Emergency (ER) | payer MEDICARE ==
[2018-10-25 09:56] VITALS: RESP 18
[2018-10-25] MEDS ORDERED: DIAZEPAM 5 MG/ML 2 ML INJ IVP STA (10:44)
[2018-10-25] MEDS ORDERED: SODIUM CHLORIDE 0.9% 1,000 ML IV STA (10:44)
[2018-10-25] MEDS ORDERED: ONDANSETRON 4 MG/2 ML VIAL IVP STA (10:44)
[2018-10-25 11:24] LABS: Basophils # (A) 0.1 k/uL (0-0.2); Basophils % (A) 1 %; Eosinophils # (A) 0.1 k/uL (0-0.7); Eosinophils % (A) 2 %; HCT 44.2 % (34.0-46.0); HGB 13.5 gm/dL (11.4-16.0); Lymphocytes # (A) 1.5 k/uL (1.0-4.8); Lymphocytes % (A) 22 %; MCH 28.1 pg (25.0-35.0); MCHC 30.6 g/dL (31.0-37.0); Mean Platelet Volume 7.7; Monocytes # (A) 0.5 k/uL (0-1.0); Monocytes % (A) 6 %; Neutrophils # (A) 4.7 k/uL (1.3-7.7); Neutrophils % (A) 67 %; Platelet Count 346 k/uL (150-450); RBC 4.81 m/uL (3.80-5.40)
[2018-10-25 11:26] LABS: INR 0.9 (<1.2); Partial Thromboplastin Time 23.1 sec (22.0-30.0); Prothrombin Time 9.7 sec (9.0-12.0)
[2018-10-25 11:29] LABS: Albumin 4.3 g/dL (3.5-5.0); Calcium 9.3 mg/dL (8.4-10.2); Magnesium 2.2 mg/dL (1.6-2.3); Phosphorus 3.1 mg/dL (2.5-4.5); Potassium 4.4 mmol/L (3.5-5.1); Total Bilirubin 0.5 mg/dL (0.2-1.3); Total Protein 7.1 g/dL (6.3-8.2)
--- NOTE | 2018-10-25 11:55 | XR ---
EXAMINATION TYPE: XR chest 2V DATE OF EXAM: 10/25/2018 COMPARISON: 04/27/2018 HISTORY: Altered mental status TECHNIQUE: Frontal and lateral views of the chest are obtained. FINDINGS: There is no focal air space opacity, pleural effusion, or pneumothorax seen. The cardiac silhouette size is within normal limits. Healed fracture deformities are seen of the posterior lower and mid left ribs. Diffuse osseous demineralization is noted.. IMPRESSION: No acute cardiopulmonary process.
--- NOTE | 2018-10-25 12:08 | ED ---
Weakness HPI - General Chief complaint: Eye Problems Stated complaint: Double Vision Time Seen by Provider: 10/25/18 10:22 Source: patient, family, RN notes reviewed, old records reviewed Mode of arrival: ambulatory Limitations: no limitations - History of Present Illness Initial comments: This is a 67-year-old female the ER for evaluation. Patient's presented today for evaluation regards to multiple complaints ranging from headache to blurry vision abdominal pain to tingling in arms and legs and cold feet. A she has never had significant symptoms of the same before. is at bedside and states patient did have some anxiety issues currently states patient is been acting eating and drinking appropriately. No recent change in medications no additional medications. MD Complaint: generalized weakness, numbness, tingling -: days(s) Location: generalized Severity: mild Severity scale (1-10): 1 Quality: aching (Headache) Consistency: intermittent Improves with: none Worsens with: none Associated Symptoms: confusion, fever/chills, headaches, loss of appetite - Related Data Home Medications Medication Instructions Recorded Confirmed QUEtiapine [SEROquel] 50 mg PO HS 05/07/18 10/25/18 Allergies Allergy/AdvReac Type Severity Reaction Status Date / Time No Known Allergies Allergy Verified 10/25/18 10:25 Review of Systems ROS Statement: Those systems with pertinent positive or pertinent negative responses have been documented in the HPI. ROS Other: All systems not noted in ROS Statement are negative. 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 History of Any Multi-Drug Resistant Organisms: None Reported Past Surgical History: Adenoidectomy, Breast Surgery, Tonsillectomy, Tubal Ligation Additional Past Surgical History / Comment(s): Surgery for prolapsed rectum, c olonoscopy, bilateral breast mastectomy, benign skin bx. Past Anesthesia/Blood Transfusion Reactions: No Reported Reaction Additional Past Anesthesia/Blood Transfusion Reaction / Comment(s): CLAUSTERPHOBIA Past Psychological History: Anxiety, Depression Smoking Status: Former smoker Past Alcohol Use History: None Reported Past Drug Use History: None Reported - Past Family History Father Family Medical History: Cancer, Rheumatoid Arthritis (RA) Additional Family Medical History / Comment(s): SKIN CANCER, HEART PROBLEMS (PT NOT SURE WHAT TYPE) Mother Family Medical History: Dementia, Deep Vein Thrombosis (DVT), Osteoarthritis (OA) General Exam Limitations: no limitations General appearance: alert, in no apparent distress Head exam: Present: atraumatic, normocephalic, normal inspection Eye exam: Present: normal appearance, PERRL, EOMI. Absent: scleral icterus, conjunctival injection, periorbital swelling ENT exam: Present: normal exam, mucous membranes moist Neck exam: Present: normal inspection. Absent: tenderness, meningismus, lymphadenopathy Respiratory exam: Present: normal lung sounds bilaterally. Absent: respiratory distress, wheezes, rales, rhonchi, stridor Cardiovascular Exam: Present: regular rate, normal rhythm, normal heart sounds. Absent: systolic murmur, diastolic murmur, rubs, gallop, clicks GI/Abdominal exam: Present: soft, normal bowel sounds. Absent: distended, tenderness, guarding, rebound, rigid Extremities exam: Present: normal inspection, full ROM, normal capillary refill. Absent: tenderness, pedal edema, joint swelling, calf tenderness Back exam: Present: normal inspection Neurological exam: Present: alert, oriented X3, CN II-XII intact Psychiatric exam: Present: normal affect, normal mood Skin exam: Present: warm, dry, intact, normal color. Absent: rash Course Vital Signs 10/25/18 10/25/18 09:51 13:23 Temperature 97.9 F 96.9 F L Pulse Rate 80 64 Respiratory 18 18 Rate Blood Pressure 117/59 125/73 O2 Sat by Pulse 97 98 Oximetry - Reevaluation(s) Reevaluation #1: Medical records reviewed Patient states that her complaints are actually improved currently. Patient does feel comfortable with discharge EKG Findings - EKG Comments: EKG Findings:: EKG shows sinus rhythm rate of 65, OH 134, QRS 104, QTc 451 Medical Decision Making - Medical Decision Making 67 female, does admit to some anxiety issues, patient is multiple unrelated complaints here today. Patient's symptoms are all improved here with medication the ER. Patient has no significant current complaints. Comfortable be discharged home patient will with - Lab Data Result diagrams: 10/25/18 11:05 10/25/18 11:05 Lab Results 10/25/18 10/25/18 10/25/18 Range/Units 11:05 11:05 11:05 WBC 7.0 (3.8-10.6) k/uL RBC 4.81 (3.80-5.40) m/uL Hgb 13.5 (11.4-16.0) gm/dL Hct 44.2 (34.0-46.0) % MCV 92.0 (80.0-100.0) fL MCH 28.1 (25.0-35.0) pg MCHC 30.6 L (31.0-37.0) g/dL RDW 14.0 (11.5-15.5) % Plt Count 346 (150-450) k/uL Neutrophils % 67 % Lymphocytes % 22 % Monocytes % 6 % Eosinophils % 2 % Basophils % 1 % Neutrophils # 4.7 (1.3-7.7) k/uL Lymphocytes # 1.5 (1.0-4.8) k/uL Monocytes # 0.5 (0-1.0) k/uL Eosinophils # 0.1 (0-0.7) k/uL Basophils # 0.1 (0-0.2) k/uL PT 9.7 (9.0-12.0) sec INR 0.9 (<1.2) APTT 23.1 (22.0-30.0) sec Sodium 143 (137-145) mmol/L Potassium 4.4 (3.5-5.1) mmol/L Chloride 107 (98-107) mmol/L Carbon Dioxide 31 H (22-30) mmol/L Anion Gap 5 mmol/L BUN 24 H (7-17) mg/dL Creatinine 1.04 (0.52-1.04) mg/dL Est GFR (CKD-EPI)AfAm 64 (>60 ml/min/1.73 sqM) Est GFR (CKD-EPI)NonAf 55 (>60 ml/min/1.73 sqM) Glucose 83 (74-99) mg/dL Calcium 9.3 (8.4-10.2) mg/dL Phosphorus 3.1 (2.5-4.5) mg/dL Magnesium 2.2 (1.6-2.3) mg/dL Total Bilirubin 0.5 (0.2-1.3) mg/dL AST 11 L (14-36) U/L ALT 16 (9-52) U/L Alkaline Phosphatase 75 (38-126) U/L Troponin I (0.000-0.034) ng/mL Total Protein 7.1 (6.3-8.2) g/dL Albumin 4.3 (3.5-5.0) g/dL TSH 1.510 (0.465-4.680) mIU/L 10/25/18 Range/Units 11:05 WBC (3.8-10.6) k/uL RBC (3.80-5.40) m/uL Hgb (11.4-16.0) gm/dL Hct (34.0-46.0) % MCV (80.0-100.0) fL MCH (25.0-35.0) pg MCHC (31.0-37.0) g/dL RDW (11.5-15.5) % Plt Count (150-450) k/uL Neutrophils % % Lymphocytes % % Monocytes % % Eosinophils % % Basophils % % Neutrophils # (1.3-7.7) k/uL Lymphocytes # (1.0-4.8) k/uL Monocytes # (0-1.0) k/uL Eosinophils # (0-0.7) k/uL Basophils # (0-0.2) k/uL PT (9.0-12.0) sec INR (<1.2) APTT (22.0-30.0) sec Sodium (137-145) mmol/L Potassium (3.5-5.1) mmol/L Chloride (98-107) mmol/L Carbon Dioxide (22-30) mmol/L Anion Gap mmol/L BUN (7-17) mg/dL Creatinine (0.52-1.04) mg/dL Est GFR (CKD-EPI)AfAm (>60 ml/min/1.73 sqM) Est GFR (CKD-EPI)NonAf (>60 ml/min/1.73 sqM) Glucose (74-99) mg/dL Calcium (8.4-10.2) mg/dL Phosphorus (2.5-4.5) mg/dL Magnesium (1.6-2.3) mg/dL Total Bilirubin (0.2-1.3) mg/dL AST (14-36) U/L ALT (9-52) U/L Alkaline Phosphatase (38-126) U/L Troponin I <0.012 (0.000-0.034) ng/mL Total Protein (6.3-8.2) g/dL Albumin (3.5-5.0) g/dL TSH (0.465-4.680) mIU/L - Radiology Data Radiology results: report reviewed (CT brain and chest x-rays negative for acute disease), image reviewed Disposition Clinical Impression: Weakness, Paresthesia, Headache Disposition: HOME SELF-CARE Condition: Good Instructions (If sedation given, give patient instructions): Acute Headache (ED), Paresthesia (ED), Weakness (ED) Is patient prescribed a controlled substance at d/c from ED?: No Referrals: Raymond Ovalle DO [Primary Care Provider] - 1-2 days
--- NOTE | 2018-10-25 12:46 | CT ---
EXAMINATION TYPE: CT brain wo con DATE OF EXAM: 10/25/2018 COMPARISON: None HISTORY: head pressure, double vision CT DLP: 1052.4 mGycm Automated exposure control for dose reduction was used. TECHNIQUE: CT scan of the head is performed without contrast. FINDINGS: There is no acute intracranial hemorrhage or midline shift identified. There is diffuse v entricular and sulcal prominence consistent with diffuse age-related cerebral atrophy. There a few p unctate foci of low-attenuation in the periventricular white matter most commonly related to chronic small vessel ischemic change. Dystrophic basal ganglia calcifications are incidentally noted. The gil bes are intact and the visualized sinuses are clear. IMPRESSION: No acute intracranial hemorrhage or midline shift. Mild diffuse age-related cerebral atr ophy and few foci of chronic small vessel ischemic change noted. Globes are symmetric.
[2018-10-25 13:24] VITALS: BP 125/73; PULSE 64; TEMP 96.9
== END 2018-10-25 13:30 | disposition home or self-care (01) ==
LOC: EC 09:51
DX: R53.1 Weakness (principal); R20.2 Paresthesia of skin; R51 Headache; F41.9 Anxiety disorder, unspecified; R41.0 Disorientation, unspecified; R50.9 Fever, unspecified; R63.0 Anorexia; R20.0 Anesthesia of skin; H53.8 Other visual disturbances; R10.9 Unspecified abdominal pain; F32.9 Major depressive disorder, single episode, unspecified; Z87.891 Personal history of nicotine dependence; Z79.899 Other long term (current) drug therapy; Z85.3 Personal history of malignant neoplasm of breast; Z92.21 Personal history of antineoplastic chemotherapy; Z90.13 Acquired absence of bilateral breasts and nipples; Z86.73 Personal history of transient ischemic attack (TIA), and cerebral infarction without residual deficits
CPT/HCPCS: 36415; 93005; 80053; 83735; 84100; 84443; 84484; 85025; 85610; 85730; 71046; 70450; 99285; 96374; 96375; 96361; J3360; J2405

== ENCOUNTER 2018-12-12 10:23 | Emergency (ER) | payer MEDICARE ==
[2018-12-12 10:27] VITALS: BP 146/76; PULSE 86; RESP 16; TEMP 98.4
[2018-12-12] MEDS ORDERED: FAMOTIDINE 20 MG/2 ML VIAL IV STA (10:54)
[2018-12-12] MEDS ORDERED: SODIUM CHLORIDE 0.9% 1,000 ML IV STA (10:54)
[2018-12-12] MEDS ORDERED: ONDANSETRON 4 MG/2 ML VIAL IVP STA (10:54)
[2018-12-12 11:09] LABS: Basophils # (A) 0.1 k/uL (0-0.2); Basophils % (A) 1 %; Eosinophils # (A) 0.2 k/uL (0-0.7); Eosinophils % (A) 3 %; HCT 41.8 % (34.0-46.0); Lymphocytes # (A) 1.4 k/uL (1.0-4.8); Lymphocytes % (A) 19 %; MCH 28.2 pg (25.0-35.0); Mean Platelet Volume 7.3; Monocytes # (A) 0.5 k/uL (0-1.0); Monocytes % (A) 7 %; Neutrophils # (A) 4.9 k/uL (1.3-7.7); Neutrophils % (A) 68 %; Platelet Count 403 k/uL (150-450); RBC 4.59 m/uL (3.80-5.40); RDW 13.6 % (11.5-15.5); WBC 7.2 k/uL (3.8-10.6)
[2018-12-12 11:21] LABS: Appearance,Urine Clear (Clear); Bilirubin,Urine Negative (Negative); Blood,Urine Negative (Negative); Color,Urine Yellow; Glucose,Urine (UA) Negative (Negative); Ketones,Urine Negative (Negative); Leukocyte Esterase,Urine Small (Negative); Mucus,Urine Occasional /hpf; Nitrite,Urine Negative (Negative); PH, Urine 5.5 (5.0-8.0); Protein,Urine Negative (Negative); RBC,Urine 1 /hpf (0-5); Specific Gravity,Urine 1.024 (1.001-1.035); Squamous Epithelial Cell,Urine 1 /hpf (0-4); Urobilinogen,Urine <2.0 mg/dL (<2.0)
--- NOTE | 2018-12-12 11:24 | ED ---
Abdominal Pain HPI - General Chief Complaint: Abdominal Pain Stated Complaint: ABDOMINAL PAIN Time Seen by Provider: 12/12/18 10:46 Source: patient Mode of arrival: ambulatory Limitations: no limitations - History of Present Illness Initial Comments: Patient is a 68-year-old female presenting to emergency Department with complaints of abdominal pressure 2 hours. Patient states the pressure is in the upper part of her stomach and hurts to take in a deep breath. Patient denies abdominal pain. Patient does admit to associated nausea. Patient does admit to having history of GERD. Patient seems highly anxious about this pressure. Patient denies chest pain, shortness of breath, cough, vomiting. Patient admits to no bowel movement today but had diarrhea and one episode of vomiting yesterday. Patient states she feels "gurgling" in her stomach most of the day today. No other complaints at this time. - Related Data Home Medications Medication Instructions Recorded Confirmed QUEtiapine [SEROquel] 50 mg PO HS 05/07/18 12/12/18 Previous Rx's Medication Instructions Recorded Ondansetron Odt [Zofran Odt] 4 mg PO Q8HR PRN #10 tab 12/12/18 Simethicone [Phazyme] 250 mg PO BID PRN 10 Days #20 12/12/18 capsule Allergies Allergy/AdvReac Type Severity Reaction Status Date / Time No Known Allergies Allergy Verified 12/12/18 10:37 Review of Systems ROS Statement: Those systems with pertinent positive or pertinent negative responses have been documented in the HPI. ROS Other: All systems not noted in ROS Statement are negative. 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 History of Any Multi-Drug Resistant Organisms: None Reported Past Surgical History: Adenoidectomy, Breast Surgery, Tonsillectomy, Tubal Liga tion Additional Past Surgical History / Comment(s): Surgery for prolapsed rectum, colonoscopy, bilateral breast mastectomy, benign skin bx. Past Anesthesia/Blood Transfusion Reactions: No Reported Reaction Additional Past Anesthesia/Blood Transfusion Reaction / Comment(s): CLAUSTERPHOBIA Past Psychological History: Anxiety, Depression Smoking Status: Former smoker Past Alcohol Use History: None Reported Past Drug Use History: None Reported - Past Family History Father Family Medical History: Cancer, Rheumatoid Arthritis (RA) Additional Family Medical History / Comment(s): SKIN CANCER, HEART PROBLEMS (PT NOT SURE WHAT TYPE) Mother Family Medical History: Dementia, Deep Vein Thrombosis (DVT), Osteoarthritis (OA) General Exam - General Exam Comments Initial Comments: GENERAL: Well-appearing, well-nourished, no acute distress but patient seems anxious HEAD: Atraumatic, normocephalic. EYES: Pupils equal round and reactive to light, extraocular movements intact, sclera anicteric, conjunctiva are normal. ENT: TMs normal, nares patent, oropharynx clear without exudates. Moist mucous membranes. NECK: Normal range of motion, supple without lymphadenopathy or JVD. LUNGS: Breath sounds clear to auscultation bilaterally and equal. No wheezes rales or rhonchi. HEART: Regular rate and rhythm without murmurs, rubs or gallops. ABDOMEN: Soft, nontender, normoactive bowel sounds. Patient denies pain, admits to "pressure feeling" . No guarding, no rebound. No masses appreciated. : Deferred EXTREMITIES: Normal range of motion, no pitting or edema. No clubbing or cyanosis. NEUROLOGICAL: Cranial nerves II through XII grossly intact. Normal speech, normal gait. PSYCH: Normal mood, normal affect. SKIN: Warm, Dry, normal turgor, no rashes or lesions noted. Limitations: no limitations Course Vital Signs 12/12/18 10:25 Temperature 98.4 F Pulse Rate 86 Respiratory 16 Rate Blood Pressure 146/76 O2 Sat by Pulse 98 Oximetry Medical Decision Making - Medical Decision Making Patient is a 68-year-old female with complaints of generalized abdominal pressure 2 hours. Patient admits to nausea. Patient states she had diarrhea and vomiting yesterday. Patient denies fever, chills, chest pain, abdominal pain. Laboratory studies including lactic acid and troponin are all within normal limits. UA is within normal limits. EKG shows no acute changes and similar to previous EKG in October. Patient reports improvement with fluids and Zofran. Most likely gastroenteritis related. Patient will be discharged home. Return parameters were discussed. Case is discussed with Dr. Abdi. - Lab Data Result diagrams: 12/12/18 10:50 12/12/18 10:50 Lab Results 12/12/18 12/12/18 12/12/18 Range/Units 10:50 10:50 10:50 WBC 7.2 (3.8-10.6) k/uL RBC 4.59 (3.80-5.40) m/uL Hgb 13.0 (11.4-16.0) gm/dL Hct 41.8 (34.0-46.0) % MCV 91.0 (80.0-100.0) fL MCH 28.2 (25.0-35.0) pg MCHC 31.0 (31.0-37.0) g/dL RDW 13.6 (11.5-15.5) % Plt Count 403 (150-450) k/uL Neutrophils % 68 % Lymphocytes % 19 % Monocytes % 7 % Eosinophils % 3 % Basophils % 1 % Neutrophils # 4.9 (1.3-7.7) k/uL Lymphocytes # 1.4 (1.0-4.8) k/uL Monocytes # 0.5 (0-1.0) k/uL Eosinophils # 0.2 (0-0.7) k/uL Basophils # 0.1 (0-0.2) k/uL Sodium 143 (137-145) mmol/L Potassium 4.8 (3.5-5.1) mmol/L Chloride 106 (98-107) mmol/L Carbon Dioxide 31 H (22-30) mmol/L Anion Gap 6 mmol/L BUN 27 H (7-17) mg/dL Creatinine 1.09 H (0.52-1.04) mg/dL Est GFR (CKD-EPI)AfAm 60 (>60 ml/min/1.73 sqM) Est GFR (CKD-EPI)NonAf 52 (>60 ml/min/1.73 sqM) Glucose 98 (74-99) mg/dL Plasma Lactic Acid Abundio (0.7-2.0) mmol/L Calcium 9.4 (8.4-10.2) mg/dL Total Bilirubin 0.2 (0.2-1.3) mg/dL AST 11 L (14-36) U/L ALT 20 (9-52) U/L Alkaline Phosphatase 74 (38-126) U/L Troponin I <0.012 (0.000-0.034) ng/mL Total Protein 6.7 (6.3-8.2) g/dL Albumin 3.9 (3.5-5.0) g/dL Amylase 60 (30-110) U/L Lipase 88 (23-300) U/L Urine Color Urine Appearance (Clear) Urine pH (5.0-8.0) Ur Specific [place] (1.001-1.035) Urine Protein (Negative) Urine Glucose (UA) (Negative) Urine Ketones (Negative) Urine Blood (Negative) Urine Nitrite (Negative) Urine Bilirubin (Negative) Urine Urobilinogen (<2.0) mg/dL Ur Leukocyte Esterase (Negative) Urine RBC (0-5) /hpf Urine WBC (0-5) /hpf Ur Squamous Epith Cells (0-4) /hpf Urine Mucus (None) /hpf 12/12/18 12/12/18 Range/Units 10:58 11:08 WBC (3.8-10.6) k/uL RBC (3.80-5.40) m/uL Hgb (11.4-16.0) gm/dL Hct (34.0-46.0) % MCV (80.0-100.0) fL MCH (25.0-35.0) pg MCHC (31.0-37.0) g/dL RDW (11.5-15.5) % Plt Count (150-450) k/uL Neutrophils % % Lymphocytes % % Monocytes % % Eosinophils % % Basophils % % Neutrophils # (1.3-7.7) k/uL Lymphocytes # (1.0-4.8) k/uL Monocytes # (0-1.0) k/uL Eosinophils # (0-0.7) k/uL Basophils # (0-0.2) k/uL Sodium (137-145) mmol/L Potassium (3.5-5.1) mmol/L Chloride (98-107) mmol/L Carbon Dioxide (22-30) mmol/L Anion Gap mmol/L BUN (7-17) mg/dL Creatinine (0.52-1.04) mg/dL Est GFR (CKD-EPI)AfAm (>60 ml/min/1.73 sqM) Est GFR (CKD-EPI)NonAf (>60 ml/min/1.73 sqM) Glucose (74-99) mg/dL Plasma Lactic Acid Abundio 0.9 (0.7-2.0) mmol/L Calcium (8.4-10.2) mg/dL Total Bilirubin (0.2-1.3) mg/dL AST (14-36) U/L ALT (9-52) U/L Alkaline Phosphatase (38-126) U/L Troponin I (0.000-0.034) ng/mL Total Protein (6.3-8.2) g/dL Albumin (3.5-5.0) g/dL Amylase (30-110) U/L Lipase (23-300) U/L Urine Color Yellow Urine Appearance Clear (Clear) Urine pH 5.5 (5.0-8.0) Ur Specific [place] 1.024 (1.001-1.035) Urine Protein Negative (Negative) Urine Glucose (UA) Negative (Negative) Urine Ketones Negative (Negative) Urine Blood Negative (Negative) Urine Nitrite Negative (Negative) Urine Bilirubin Negative (Negative) Urine Urobilinogen <2.0 (<2.0) mg/dL Ur Leukocyte Esterase Small H (Negative) Urine RBC 1 (0-5) /hpf Urine WBC 2 (0-5) /hpf Ur Squamous Epith Cells 1 (0-4) /hpf Urine Mucus Occasional H (None) /hpf - EKG Data EKG Comments: Ventricular rate 65, VA interval 140, QTC 420,normal sinus rhythm with sinus arrhythmia, RBBB, no acute ST-T wave changes. Disposition Clinical Impression: Generalized abdominal pressure, Nausea, Gastroenteritis Disposition: HOME SELF-CARE Condition: Stable Instructions (If sedation given, give patient instructions): Gastroenteritis (ED) Additional Instructions: Please return to the Emergency Department if symptoms worsen or any other concerns. Prescriptions: Simethicone [Phazyme] 250 mg PO BID PRN 10 Days #20 capsule PRN Reason: gas Ondansetron Odt [Zofran Odt] 4 mg PO Q8HR PRN #10 tab PRN Reason: Nausea Is patient prescribed a controlled substance at d/c from ED?: No Referrals: Raymond Ovalle DO [Primary Care Provider] - 1-2 days
[2018-12-12 11:25] LABS: Albumin 3.9 g/dL (3.5-5.0); Calcium 9.4 mg/dL (8.4-10.2); Potassium 4.8 mmol/L (3.5-5.1); Total Bilirubin 0.2 mg/dL (0.2-1.3); Total Protein 6.7 g/dL (6.3-8.2)
--- NOTE | 2018-12-12 11:33 | XR ---
EXAMINATION TYPE: XR KUB DATE OF EXAM: 12/12/2018 COMPARISON: 05/13/2018 HISTORY: Pain TECHNIQUE: One view abdominal series FINDINGS: The osseous structures are intact. The bowel gas pattern is nonspecific. Lung bases are clear. Arth ropathy of the hips with diffuse osteopenia. Degenerative changes spine. IMPRESSION: 1. Nonspecific abdomen.
[2018-12-12] MEDS ORDERED: MAG HYDROX/AL HYDROX/SIMETH 30 ML CUP PO STA (12:08)
== END 2018-12-12 12:52 | disposition home or self-care (01) ==
LOC: EC 10:23
DX: K52.9 Noninfective gastroenteritis and colitis, unspecified (principal); I45.10 Unspecified right bundle-branch block; I49.8 Other specified cardiac arrhythmias; F32.9 Major depressive disorder, single episode, unspecified; Z87.891 Personal history of nicotine dependence; Z79.899 Other long term (current) drug therapy; Z87.19 Personal history of other diseases of the digestive system; Z85.3 Personal history of malignant neoplasm of breast; Z92.21 Personal history of antineoplastic chemotherapy; Z86.73 Personal history of transient ischemic attack (TIA), and cerebral infarction without residual deficits; Z90.13 Acquired absence of bilateral breasts and nipples; Z82.49 Family history of ischemic heart disease and other diseases of the circulatory system
CPT/HCPCS: 36415; 93005; 80053; 82150; 83605; 83690; 84484; 85025; 81001; 74018; 99284; 96374; 96375; 96361 ×2; J2405

== ENCOUNTER 2019-08-08 10:33 | Emergency (ER) | payer MEDICARE ==
[2019-08-08] MEDS ORDERED: ONDANSETRON 4 MG/2 ML VIAL IVP STA (11:01)
[2019-08-08] MEDS ORDERED: SODIUM CHLORIDE 0.9% 2,000 ML IV STA (11:01)
[2019-08-08] MEDS ORDERED: PANTOPRAZOLE 40 MG/10 ML VIAL IVP STA (11:01)
[2019-08-08] MEDS ORDERED: MORPHINE SULFATE 4 MG/ML SYRINGE IV STA (11:01)
--- NOTE | 2019-08-08 11:04 | ED ---
Abdominal Pain HPI - General Chief Complaint: Abdominal Pain Stated Complaint: "feels like something expanding in my chest" Time Seen by Provider: 08/08/19 10:50 Source: patient Mode of arrival: ambulatory Limitations: no limitations - History of Present Illness Initial Comments: Patient is 68-year-old female presenting to the emergency Department with a chief complaint of abdominal pain. States the symptoms began early this morning with sudden onset. Patient does report nausea but no episodes of vomiting and diarrhea. Denies any associated fevers or chills. States the pain is located in the upper abdomen and it feels "hard". patient does report some bloating and distention in the upper abdominal region. No history of prior abdominal surger ies. Does report taking [id number] analgesics minimal improvement. Denies any urinary or vaginal symptoms. Denies anyfevers or chills. Denies any shortness of breath or chest pain. - Related Data Home Medications Medication Instructions Recorded Confirmed QUEtiapine [SEROquel] 50 mg PO HS 05/07/18 12/12/18 Previous Rx's Medication Instructions Recorded Ondansetron Odt [Zofran Odt] 4 mg PO Q8HR PRN #10 tab 12/12/18 Simethicone [Phazyme] 250 mg PO BID PRN 10 Days #20 12/12/18 capsule Dicyclomine [Bentyl] 20 mg PO TID #30 tablet 08/08/19 Omeprazole [PriLOSEC] 20 mg PO AC-BRKFST #14 cap 08/08/19 Ondansetron Odt [Zofran Odt] 4 mg PO Q8HR PRN #20 tab 08/08/19 Allergies Allergy/AdvReac Type Severity Reaction Status Date / Time No Known Allergies Allergy Verified 08/08/19 10:40 Review of Systems ROS Statement: Those systems with pertinent positive or pertinent negative responses have been documented in the HPI. ROS Other: All systems not noted in ROS Statement are negative. 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 History of Any Multi-Drug Resistant Organisms: None Reported Past Surgical History: Adenoidectomy, Breast Surgery, Tonsillectomy, Tubal Ligation Additional Past Surgical History / Comment(s): Surgery for prolapsed rectum, colonoscopy, bilateral breast mastectomy, benign skin bx. Past Anesthesia/Blood Transfusion Reactions: No Reported Reaction Additional Past Anesthesia/Blood Transfusion Reaction / Comment(s): CLAUSTERPHOBIA Past Psychological History: Anxiety, Depression Smoking Status: Former smoker Past Alcohol Use History: None Reported Past Drug Use History: None Reported - Past Family History Father Family Medical History: Cancer, Rheumatoid Arthritis (RA) Additional Family Medical History / Comment(s): SKIN CANCER, HEART PROBLEMS (PT NOT SURE WHAT TYPE) Mother Family Medical History: Dementia, Deep Vein Thrombosis (DVT), Osteoarthritis (OA) General Exam Limitations: no limitations General appearance: alert, in no apparent distress Head exam: Present: atraumatic, normocephalic, normal inspection Eye exam: Present: normal appearance Pupils: Present: normal accommodation ENT exam: Present: normal exam Neck exam: Present: normal inspection, full ROM Respiratory exam: Present: normal lung sounds bilaterally Cardiovascular Exam: Present: regular rate, normal rhythm, normal heart sounds GI/Abdominal exam: Present: soft, tenderness (Epigastric tenderness), rigid. Absent: distended, guarding, rebound Extremities exam: Present: normal inspection, full ROM Back exam: Present: normal inspection, full ROM Neurological exam: Present: alert, oriented X3 Psychiatric exam: Present: normal affect, normal mood Skin exam: Present: warm, dry, intact, normal color Course Vital Signs 08/08/19 08/08/19 08/08/19 10:38 12:00 12:30 Temperature 97.7 F Pulse Rate 61 68 Respiratory 22 18 Rate Blood Pressure 129/61 133/78 117/65 O2 Sat by Pulse 96 97 93 L Oximetry 08/08/19 08/08/19 13:30 14:30 Temperature 98.0 F Pulse Rate 70 70 Respiratory 17 Rate Blood Pressure 127/67 136/72 O2 Sat by Pulse 79 L Oximetry Medical Decision Making - Medical Decision Making Patient is 68-year-old female presenting to the emergency department with a chief complaint of abdominal pain. Gradual onset of abdominal pain in the upper abdominal region along with distention and bloating. Patient does report nausea but no vomiting or diarrhea. No history of prior abdominal surgeries. EKG shows a right bundle-branch block with normal sinus rhythm. Appears very similar to the most recent from 1 year ago. No abdominal pain chest pain or shortness of breath. UA, CBC and CMP are unremarkable. Patient was given fluids, antiemetics and analgesia. CT of the pelvis showed prominent fluid- filled small bowel loops throughout the abdomen and pelvis suggesting enteritis. Small size hiatal hernias also present. On reevaluation patient reports improvement in symptoms. States the bloating feeling is still present. No vaginal urinary symptoms. Patient will be discharged with Zofran, Bentyl and omeprazole. Patient advised to follow-up with primary care. Return parameters were thoroughly discussed the patient was understanding and agreeable. Case discussed with physician. - Lab Data Result diagrams: 08/08/19 11:15 08/08/19 11:15 Lab Results 08/08/19 08/08/19 08/08/19 Range/Units 11:15 11:15 11:15 WBC 7.9 (3.8-10.6) k/uL RBC 5.18 (3.80-5.40) m/uL Hgb 15.0 (11.4-16.0) gm/dL Hct 48.5 H (34.0-46.0) % MCV 93.7 (80.0-100.0) fL MCH 28.9 (25.0-35.0) pg MCHC 30.8 L (31.0-37.0) g/dL RDW 12.9 (11.5-15.5) % Plt Count 336 (150-450) k/uL Neutrophils % 66 % Lymphocytes % 20 % Monocytes % 8 % Eosinophils % 3 % Basophils % 1 % Neutrophils # 5.2 (1.3-7.7) k/uL Lymphocytes # 1.6 (1.0-4.8) k/uL Monocytes # 0.6 (0-1.0) k/uL Eosinophils # 0.2 (0-0.7) k/uL Basophils # 0.0 (0-0.2) k/uL Hypochromasia Slight Sodium 141 (137-145) mmol/L Potassium 5.0 (3.5-5.1) mmol/L Chloride 102 (98-107) mmol/L Carbon Dioxide 29 (22-30) mmol/L Anion Gap 10 mmol/L BUN 26 H (7-17) mg/dL Creatinine 1.01 (0.52-1.04) mg/dL Est GFR (CKD-EPI)AfAm 65 (>60 ml/min/1.73 sqM) Est GFR (CKD-EPI)NonAf 57 (>60 ml/min/1.73 sqM) Glucose 92 (74-99) mg/dL Calcium 9.5 (8.4-10.2) mg/dL Total Bilirubin 0.5 (0.2-1.3) mg/dL AST 17 (14-36) U/L ALT 14 (4-34) U/L Alkaline Phosphatase 83 (38-126) U/L Total Protein 7.9 (6.3-8.2) g/dL Albumin 4.6 (3.5-5.0) g/dL Amylase 61 (30-110) U/L Lipase 90 (23-300) U/L Urine Color Yellow Urine Appearance Clear (Clear) Urine pH 5.5 (5.0-8.0) Ur Specific [place] 1.027 (1.001-1.035) Urine Protein Negative (Negative) Urine Glucose (UA) Negative (Negative) Urine Ketones Negative (Negative) Urine Blood Negative (Negative) Urine Nitrite Negative (Negative) Urine Bilirubin Negative (Negative) Urine Urobilinogen <2.0 (<2.0) mg/dL Ur Leukocyte Esterase Moderate H (Negative) Urine RBC 2 (0-5) /hpf Urine WBC 2 (0-5) /hpf Ur Squamous Epith Cells 1 (0-4) /hpf Urine Bacteria Rare H (None) /hpf Urine Mucus Occasional H (None) /hpf - EKG Data EKG Comments: EKG shows a normal sinus rhythm, right bundle branch block. Ventricular rate 77, TX 150, QRS 116, QTc 459. EKG appears similar to the most recent one in 2019. Disposition Clinical Impression: Abdominal pain, Enteritis Disposition: HOME SELF-CARE Condition: Stable Instructions (If sedation given, give patient instructions): Enteritis (ED) Additional Instructions: Please follow up with her primary care. Return to emergency department if symptoms worsen. Take prescribed medication as directed. Prescriptions: Dicyclomine [Bentyl] 20 mg PO TID #30 tablet Omeprazole [PriLOSEC] 20 mg PO AC-BRKFST #14 cap Ondansetron Odt [Zofran Odt] 4 mg PO Q8HR PRN #20 tab PRN Reason: Nausea Is patient prescribed a controlled substance at d/c from ED?: No Referrals: Raymond Ovalle DO [Primary Care Provider] - 1-2 days Time of Disposition: 14:04
[2019-08-08 11:29] LABS: Basophils % (A) 1 %; Eosinophils # (A) 0.2 k/uL (0-0.7); Eosinophils % (A) 3 %; HCT 48.5 % (34.0-46.0); Hypochromasia Slight; Lymphocytes # (A) 1.6 k/uL (1.0-4.8); Lymphocytes % (A) 20 %; MCH 28.9 pg (25.0-35.0); MCHC 30.8 g/dL (31.0-37.0); MCV 93.7 fL (80.0-100.0); Mean Platelet Volume 8.4; Monocytes # (A) 0.6 k/uL (0-1.0); Monocytes % (A) 8 %; Neutrophils # (A) 5.2 k/uL (1.3-7.7); Neutrophils % (A) 66 %; Platelet Count 336 k/uL (150-450); RBC 5.18 m/uL (3.80-5.40); RDW 12.9 % (11.5-15.5); WBC 7.9 k/uL (3.8-10.6)
[2019-08-08 11:40] LABS: Appearance,Urine Clear (Clear); Bacteria,Urine Rare /hpf; Bilirubin,Urine Negative (Negative); Blood,Urine Negative (Negative); Color,Urine Yellow; Glucose,Urine (UA) Negative (Negative); Ketones,Urine Negative (Negative); Leukocyte Esterase,Urine Moderate (Negative); Mucus,Urine Occasional /hpf; Nitrite,Urine Negative (Negative); PH, Urine 5.5 (5.0-8.0); Protein,Urine Negative (Negative); RBC,Urine 2 /hpf (0-5); Specific Gravity,Urine 1.027 (1.001-1.035); Squamous Epithelial Cell,Urine 1 /hpf (0-4); Urobilinogen,Urine <2.0 mg/dL (<2.0); WBC,Urine 2 /hpf (0-5)
[2019-08-08 11:48] LABS: Albumin 4.6 g/dL (3.5-5.0); Calcium 9.5 mg/dL (8.4-10.2); Total Bilirubin 0.5 mg/dL (0.2-1.3); Total Protein 7.9 g/dL (6.3-8.2)
--- NOTE | 2019-08-08 12:38 | CT ---
EXAMINATION TYPE: CT abdomen pelvis w con DATE OF EXAM: 08/08/2019 COMPARISON: 05/07/2018 HISTORY: 68-year-old female pain TECHNIQUE: Contiguous axial scanning of the abdomen and pelvis following administration of 100 ml Omn ipaque 300 IV contrast. Delayed images through the kidneys and coronal/sagittal reconstructions perf ormed. CT DLP: 476.2 mGycm Automated exposure control for dose reduction was used. FINDINGS: Heart normal size without pericardial effusion. Lung bases clear without pleural effusion. Small to moderate sized hernia demonstrated. Peripheral wedge of hypervascularity peripheral right liver lobe with central nodular area of 1 cm hy pervascular enhancement. This equilibrates on the delayed kidney images suggesting vascular shunting and flash filling hemangioma. No biliary ductal dilatation. Portal venous system is patent. Gallbladder, right adrenal gland, and right kidney show no gross abnormal. There is mild prominence t o the main pancreatic duct at 2.5 mm. Otherwise, the pancreas appears within normal limits. Multiple parapelvic cysts within the left kidney. Similar nodular thickening of the left adrenal gland suggesting underlying adrenal hyperplasia. Prominent fluid-filled small bowel loops throughout the abdomen and hanging into the pelvis. No abnor mal dilated small bowel, free fluid, or free air. Cecum hangs low in the pelvis. Normal appendix. Some liquid stool within the cecum. Scattered mild to moderate stool burden. No pericolonic inflammatory change. Uterus is visualized. Bladder partially distended. Neither ovary clearly visualized. No abnormal flui d collection in the pelvis. Mild pelvic floor relaxation. No pelvic lymphadenopathy seen. Bones: Mild degenerative changes at the hips. Facet arthropathy mid to lower lumbar spine with grade 1 anterolisthesis at L4-L5. IMPRESSION: 1. PROMINENT FLUID-FILLED SMALL BOWEL LOOPS THROUGHOUT THE ABDOMEN and pelvis and liquid stool in the cecum. Correlate for enteritis. 2. Stable small to moderate-sized hiatal hernia. 3. Stable thickening of the left adrenal gland suggests adrenal hyperplasia.
[2019-08-08] MEDS ORDERED: DICYCLOMINE 10 MG/ML 2 ML AMP IM STA (14:02)
[2019-08-08 14:34] VITALS: BP 136/72; PULSE 70; RESP 17; TEMP 98
== END 2019-08-08 14:30 | disposition home or self-care (01) ==
LOC: EC 10:33
DX: K52.9 Noninfective gastroenteritis and colitis, unspecified (principal); I45.10 Unspecified right bundle-branch block; K44.9 Diaphragmatic hernia without obstruction or gangrene; F41.9 Anxiety disorder, unspecified; F32.9 Major depressive disorder, single episode, unspecified; M06.9 Rheumatoid arthritis, unspecified; G40.909 Epilepsy, unspecified, not intractable, without status epilepticus; E07.9 Disorder of thyroid, unspecified; Z79.899 Other long term (current) drug therapy; Z86.73 Personal history of transient ischemic attack (TIA), and cerebral infarction without residual deficits; Z85.3 Personal history of malignant neoplasm of breast; Z90.13 Acquired absence of bilateral breasts and nipples; Z87.891 Personal history of nicotine dependence
CPT/HCPCS: 36415; 93005; 80053; 82150; 83690; 85025; 81001; 74177; 99284; 96374; 96375 ×2; 96361 ×3; 96372; J2270; J0500; J2405; C9113; Q9967